=== PATIENT | female | born 1960 | race Hispanic/Latino ===

== ENCOUNTER 2020-03-22 05:44 | Observation (INO) | payer OTHER ==
[~2020-03-22] VITALS: Ht 154.9 cm; Wt 77.1 kg
[2020-03-22] MEDS ORDERED: ASPIRIN 81 MG CHEW TAB PO ONE (06:15)
[2020-03-22] MEDS ORDERED: CLONIDINE HCL 0.2 MG TAB PO ONE (06:15)
[2020-03-22] MEDS ORDERED: CLONIDINE HCL 0.1 MG TAB PO ONE (06:15)
[2020-03-22 06:16] LABS: INR 0.97; PROTHROMBIN TIME 13.4 seconds (11.9-14.5)
[2020-03-22] MEDS ORDERED: CLONIDINE HCL 0.2 MG TAB ONE (06:16)
[2020-03-22 06:19] LABS: CLARITY,URINE CLEAR (CLEAR); COLOR,URINE YELLOW (YELLOW); LEUKOCYTE ESTERASE ,URINE NEGATIVE (NEGATIVE); NITRITE,URINE NEGATIVE (NEGATIVE); PROTEIN,URINE DIPSTICK NEGATIVE (NEGATIVE)
[2020-03-22] MEDS ORDERED: CLONIDINE HCL 0.1 MG TAB ONE (06:19)
[2020-03-22 06:20] LABS: AMPHETAMINES SCREEN,URINE NEGATIVE (NEGATIVE); BENZODIAZEPINES SCREEN,URINE NEGATIVE (NEGATIVE); BILIRUBIN,URINE NEGATIVE (NEGATIVE); KETONES,URINE NEGATIVE (NEGATIVE); PHENCYCLIDINE SCREEN,URINE NEGATIVE (NEGATIVE); URINE UROBILINOGEN 1 mg/dL (0.2 - 1)
[2020-03-22 06:24] LABS: ALANINE AMINOTRANSFERASE 14 IU/L (0-55); ALBUMIN 4.1 g/dL (3.5-5.0); ALBUMIN/GLOBULIN RATIO 1.1 (0.8-2.0); ALKALINE PHOSPHATASE 88 IU/L (40-150); ANION GAP 16.4 mmol/L (8-16); BLOOD UREA NITROGEN 10 mg/dL (7-26); BUN/CREATININE RATIO 14 (6-25); CALCIUM 9.2 mg/dL (8.4-10.2); CARBON DIOXIDE 26 mmol/L (22-29); CHLORIDE 99 mmol/L (98-107); CREATINE KINASE 35 IU/L (29-168); CREATININE, SERUM 0.71 mg/dL (0.57-1.11); EST GLOMERULAR FILTRATION RATE > 60 ML/MIN (60-); GLUCOSE 188 mg/dL (74-118); POTASSIUM 3.4 mmol/L (3.5-5.1); SODIUM 138 mmol/L (136-145)
[2020-03-22 06:30] LABS: BACTERIA,URINE RARE /HPF; EPITHELIAL CELLS,URINE FEW /LPF
[2020-03-22 06:35] LABS: BASOPHILS # (AUTO) 0.1 (0.0-0.1); BASOPHILS % 0.9 % (0.0-1.0); EOSINOPHILS # (AUTO) 0.2 (0.0-0.4); EOSINOPHILS % 3.6 % (0.0-6.0); HEMATOCRIT 39.4 % (34.2-44.1); LYMPHOCYTES # (AUTO) 2.1 (1.0-3.2); LYMPHOCYTES % 38.3 % (18.0-39.1); MEAN CORPUSCULAR HEMOGLOBIN 30.7 pg (28-32); MEAN CORPUSCULAR VOLUME 92.9 fL (81-99); MONOCYTES # (AUTO) 0.4 (0.2-0.8); MONOCYTES % 7.2 % (4.4-11.3); NEUTROPHILS # (AUTO) 2.7 (2.1-6.9); NEUTROPHILS % 49.6 % (38.7-80.0); PLATELET COUNT 188 x10e3/uL (140-360); RED BLOOD COUNT 4.24 x10e6/uL (3.6-5.1); RED CELL DISTRIBUTION WIDTH 14.1 % (11.7-14.4)
[2020-03-22] MEDS ORDERED: AMLODIPINE BES2.5 MG PO (06:49)
[2020-03-22] MEDS ORDERED: METFORMIN HCL500 MG PO (06:49)
--- NOTE | 2020-03-22 06:49 | Diagnostic Imaging Report ---
EXAMINATION: Head CT without contrast. HISTORY:Headache, left-sided numbness. COMPARISON:None. TECHNIQUE: Multidetector axial images were obtained from the foramen magnum to the vertex without contrast. The images were reconstructed using brain and bone algorithms. Thin section brain images were reformatted into coronal and sagittal planes. Dose modulation, iterative reconstruction, and/or weight based adjustment of the mA/kV was utilized to reduce the radiation dose to as low as reasonably achievable. Intravenous contrast: None IMAGE QUALITY: Acceptable. FINDINGS: Skull/scalp: No lytic or blastic. lesions. No surgical changes. Parenchyma: Nonspecific few, scattered supratentorial white matter hypodensity likely related to small vessel ischemic changes. No acute hemorrhage, mass or acute major vascular territorial infarct. Arteries: No density suggestive of thrombosis. Atherosclerotic calcification in bilateral carotid siphon. Dural sinuses: No abnormal density suggestive of thrombosis. Ventricles: No hydrocephalus or displacement. Extra-axial spaces: No abnormal density. Brain volume: Mild generalized cerebral volume loss. Craniocervical junction: No mass, Chiari malformation, or basilar invagination. Sella: No mass. Paranasal/mastoid sinuses: Moderate mucosal thickening in the visualized portion of bilateral maxillary sinuses. IMPRESSION: No acute intracranial abnormality. Mild generalized cerebral volume loss. Mild supratentorial white matter microvascular ischemic changes. Signed by: Dr. Sandra Cobb M.D. on 03/22/2020 6:46 AM
--- NOTE | 2020-03-22 06:53 | NUR ---
Report to JOHN Smith
--- NOTE | 2020-03-22 06:55 | Emergency Department Note ---
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 Onset (how long ago): hour(s) (STARTED LAST NIGHT ~2300) Radiation: Reports non-radiation Severity: moderate Onset quality: gradual Timing of current episode: constant (POSTERIOR HEADACHE/NECK PRESSURE AND LEFT ARM/LEG TINGLING), intermittent (CHEST PRESSURE) Progression: waxing and waning Chronicity: new Context: Denies recent illness Relieving factors: none Exacerbating factors: none Associated symptoms: Reports denies other symptoms, Reports chest pain (NO ASSOC SOB/DIAPHORESIS, NO RADIATION); Denies shortness of breath, Denies weakness Treatments prior to arrival: none Past Medical/Family History Physician Review I have reviewed the patient's past medical and family history. Any updates have been documented here. Past Medical History Recent Fever: No Clinical Suspicion of Infectio: No New/Unexplained Change in Ment: No Past Medical History: Hypertension, Diabetes, Anxiety, Depression, Hyperlipedemia Other Medical History: PANIC ATTACKS Other Surgery: RT KNEE SX Social History Smoking Cessation: Former smoker Counseling Performed: No Alcohol Use: Occasional Any Illegal Drug Use: No TB Exposure/Symptoms: No Physically hurt or threatened: No Family History Family history of heart diseas: No Other Any Pre-Existing Lines (PICC,: No Review of Systems Review of Systems Constitutional: Reports no symptoms EENTM: Reports no symptoms Cardiovascular: Reports as per HPI, Reports chest pain; Denies palpitations Respiratory: Reports no symptoms Gastrointestinal: Reports no symptoms Genitourinary: Reports no symptoms Musculoskeletal: Reports no symptoms Integumentary: Reports no symptoms Neurological: Reports as per HPI, Reports headache, Reports numbness, Reports paresthesia; Denies weakness Psychological: Reports no symptoms Endocrine: Reports no symptoms Hematological/Lymphatic: Reports no symptoms Physical Exam Related Data Allergies: Coded Allergies: codeine (Verified Allergy, Unknown, 03/22/20) Triage Vital Signs Vital Signs Date Time Temp Pulse Resp B/P (MAP) Pulse Ox O2 Delivery O2 Flow Rate FiO2 03/22/20 05:44 98.8 90 20 227/91 100 Room Air Vital signs reviewed: Yes Physical Exam CONSTITUTIONAL Constitutional: Present well-developed, Present well-nourished HENT HENT: Present normocephalic, Present atraumatic, Present oropharynx clear/moist, Present nose normal HENT L/R: Present left ext ear normal, Present right ext ear normal EYES Eyes: Reports PERRL, Reports conjunctivae normal NECK Neck: Present ROM normal; Absent carotid bruit PULMONARY Pulmonary: Present effort normal, Present breath sounds normal CARDIOVASCULAR Cardiovascular: Present regular rhythm, Present heart sounds normal, Present capillary refill normal, Present normal rate GASTROINTESTINAL Abdominal: Present soft, Present nontender, Present bowel sounds normal GENITOURINARY Genitourinary: Present exam deferred SKIN Skin: Present warm, Present dry MUSCULOSKELETAL Musculoskeletal: Present ROM normal NEUROLOGICAL Neurological: Present alert, Present oriented x 3, Present DTRs normal, Present no gross motor or sensory deficits; Absent cranial nerve deficit, Absent sensory deficit, Absent abnormal gait, Absent weakness PSYCHOLOGICAL Psychological: Present mood/affect normal, Present judgement normal Results Laboratory Result Diagram: 03/22/20 0558 03/22/20 0558 Laboratory Laboratory Tests Test 03/22/20 06:00 03/22/20 05:58 Urine Color Yellow (YELLOW) Urine Clarity Clear (CLEAR) Urine pH 7 (5 - 7) Urine Specific [place] 1.025 (1.010-1.025) Urine Protein Negative (NEGATIVE) Urine Glucose (UA) Negative (NEGATIVE) Urine Ketones Negative (NEGATIVE) Urine Blood Negative (NEGATIVE) Urine Nitrite Negative (NEGATIVE) Urine Bilirubin Negative (NEGATIVE) Urine Urobilinogen 1 mg/dL (0.2 - 1) Urine Leukocyte Esterase Negative (NEGATIVE) Urine RBC None /HPF (0-5) Urine WBC 11-20 /HPF (0-5) Urine Epithelial Cells Few /LPF (NONE) Urine Bacteria Rare /HPF (NONE) Urine Opiates Screen Negative (NEGATIVE) Urine Methadone Screen (NEGATIVE) Urine Barbiturates Screen Negative (NEGATIVE) Urine Phencyclidine Screen Negative (NEGATIVE) Urine Amphetamines Screen Negative (NEGATIVE) Urine Methamphetamines Screen Negative (NEGATIVE) Urine Benzodiazepines Screen Negative (NEGATIVE) Urine Cocaine Screen Negative (NEGATIVE) Urine Cannabinoids Screen Negative (NEGATIVE) White Blood Count 5.53 x10e3/uL (4.8-10.8) Red Blood Count 4.24 x10e6/uL (3.6-5.1) Hemoglobin 13.0 g/dL (12.0-16.0) Hematocrit 39.4 % (34.2-44.1) Mean Corpuscular Volume 92.9 fL (81-99) Mean Corpuscular Hemoglobin 30.7 pg (28-32) Mean Corpuscular Hemoglobin Concent 33.0 g/dL (31-35) Red Cell Distribution Width 14.1 % (11.7-14.4) Platelet Count 188 x10e3/uL (140-360) Neutrophils (%) (Auto) 49.6 % (38.7-80.0) Lymphocytes (%) (Auto) 38.3 % (18.0-39.1) Monocytes (%) (Auto) 7.2 % (4.4-11.3) Eosinophils (%) (Auto) 3.6 % (0.0-6.0) Basophils (%) (Auto) 0.9 % (0.0-1.0) Neutrophils # (Auto) 2.7 (2.1-6.9) Lymphocytes # (Auto) 2.1 (1.0-3.2) Monocytes # (Auto) 0.4 (0.2-0.8) Eosinophils # (Auto) 0.2 (0.0-0.4) Basophils # (Auto) 0.1 (0.0-0.1) Absolute Immature Granulocyte (auto 0.02 x10e3/uL (0-0.1) Prothrombin Time 13.4 seconds (11.9-14.5) Prothromb Time International Ratio 0.97 Sodium Level 138 mmol/L (136-145) Potassium Level 3.4 mmol/L (3.5-5.1) Chloride Level 99 mmol/L (98-107) Carbon Dioxide Level 26 mmol/L (22-29) Anion Gap 16.4 mmol/L (8-16) Blood Urea Nitrogen 10 mg/dL (7-26) Creatinine 0.71 mg/dL (0.57-1.11) Estimat Glomerular Filtration Rate > 60 ML/MIN (60-) BUN/Creatinine Ratio 14 (6-25) Glucose Level 188 mg/dL (74-118) Calcium Level 9.2 mg/dL (8.4-10.2) Total Bilirubin 0.6 mg/dL (0.2-1.2) Aspartate Amino Transf (AST/SGOT) 17 IU/L (5-34) Alanine Aminotransferase (ALT/SGPT) 14 IU/L (0-55) Alkaline Phosphatase 88 IU/L (40-150) Creatine Kinase 35 IU/L (29-168) Creatine Kinase MB 0.80 ng/mL (0-5.0) Troponin I < 0.001 ng/mL (0-0.300) Total Protein 7.8 g/dL (6.5-8.1) Albumin 4.1 g/dL (3.5-5.0) Globulin 3.7 g/dL (2.3-3.5) Albumin/Globulin Ratio 1.1 (0.8-2.0) Lab results reviewed: Yes Imaging Imaging results reviewed: Yes Procedures 12 Lead ECG Interpretation ECG Interpretation : ECG: ECG 1 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 CONTROL BP Reassessment Reassessment PT STILL HAVING MILD INTERMITTENT CP - NONE CURRENTLY - WILL ADMIT OBS. I SPOKE WITH DR DA SILVA (ON-CALL) - WANTS CARDIO ON-CALL (SPOKE WITH DR BAUMAN) AND NEURO DR KOEHLER WHO I ALSO INFORMED Assessment & Plan Final Impression: (1) Chest pain (2) Paresthesia (3) Hypertensive urgency Depart Disposition: ADMITTED Last Vital Signs Date Time Temp Pulse Resp B/P (MAP) Pulse Ox O2 Delivery O2 Flow Rate FiO2 03/22/20 06:27 83 15 176/68 100 Room Air 10/21/20 05:44 98.8 Home Meds Reported Medications Metformin Hcl (METFORMIN HCL) 500 Mg Tablet, 500 MG PO DAILY, #60 TAB 03/22/20 Amlodipine Besylate (AMLODIPINE BESYLATE) 2.5 Mg Tablet, 2.5 MG PO DAILY 03/22/20 Medications in the ED Aspirin 81 mg PRN ONCE PO ; Start 03/22/20 at 06:15; Stop 03/22/20 at 06:17; Status DC Clonidine HCl 0.2 mg ONCE ONCE PO ; Start 03/22/20 at 06:15; Stop 03/22/20 at 06:13; Status DC Clonidine HCl 0.1 mg ONCE ONCE PO Last administered on 03/22/20at 06:14; Admin Dose 0.1 MG; Start 03/22/20 at 06:15; Stop 03/22/20 at 06:17; Status DC Clonidine HCl 0.1 mg STK-MED ONCE .ROUTE ; Start 03/22/20 at 06:19; Stop 03/22 at 06:12; Status DC Clonidine HCl STK-MED ONCE .ROUTE ; Start 03/22/20 at 06:16; Stop 03/22/20 at 06:13; Status DC PAULA MCALLISTER MD Mar 22, 2020 06:55
--- OUTSIDE RECORDS SUMMARY | 2020-03-22 07:22 | XMS REPORT | Continuity of Care Document ---
Author Author [facility] Organization [facility] Address [address] [place] [address] Phone Unavailable Care Team Providers Care Securities Sales Associate Name Role Phone Mattie MCALLISTER Attphys Unavailable Problems This patient has no known problems. Allergies, Adverse Reactions, Alerts This patient has no known allergies or adverse reactions. Medications This patient has no known medications. Procedures This patient has no known procedures. Encounters Start Date/Time End Date/Time Encounter Type Admission Type [facility] Care Department Encounter ID Source 2019-09-09 00:00:00 2019-09-09 00:00:00 Outpatient [facility] [id number] [facility] 2019-07-29 00:00:00 2019-07-29 00:00:00 Outpatient [facility] [id number] [facility] 2019-07-15 00:00:00 2019-07-15 00:00:00 Outpatient [facility] [id number] [facility] 2019-06-14 00:00:00 2019-06-14 00:00:00 Outpatient [facility] [id number] [facility] 2019-06-09 13:09:55 2019-06-09 13:09:55 Outpatient [facility] [id number] [facility] 2019-06-09 13:09:33 2019-06-09 13:09:33 Outpatient [facility] [id number] [facility] 2019-06-09 12:54:09 2019-06-09 12:54:09 Outpatient [facility] [id number] [facility] 2019-06-09 11:31:48 2019-06-09 11:31:48 Outpatient [facility] [id number] [facility] 2019-06-09 00:00:00 2019-06-09 00:00:00 Outpatient [facility] [id number] [facility] 2019-05-31 00:00:00 2019-05-31 00:00:00 Outpatient [facility] [id number] [facility] 2019-05-18 11:12:03 2019-05-18 11:12:03 Outpatient [facility] [id number] [facility] 2019-05-18 09:41:40 2019-05-18 09:41:40 Outpatient [facility] [id number] [facility] 2019-05-11 00:00:00 2019-05-11 00:00:00 Outpatient [facility] [id number] [facility] 2019-04-19 00:00:00 2019-04-19 00:00:00 Outpatient [facility] [id number] [facility] 2019-04-08 19:33:00 2019-04-08 19:33:00 Emergency [facility] [id number] [facility] 2019-04-06 00:00:00 2019-04-06 00:00:00 Outpatient [facility] [id number] [facility] 2019-03-10 08:45:46 2019-03-10 08:45:46 Outpatient [facility] [id number] [facility] 2019-03-10 08:45:42 2019-03-10 08:45:42 Outpatient [facility] [id number] [facility] 2019-02-16 00:00:00 2019-02-16 00:00:00 Outpatient [facility] [id number] [facility] 2019-02-16 00:00:00 2019-02-16 00:00:00 Outpatient [facility] [id number] [facility] 2019-02-10 00:00:00 2019-02-10 00:00:00 Outpatient [facility] [id number] [facility] 2019-02-10 00:00:00 2019-02-10 00:00:00 Outpatient [facility] [id number] [facility] 2019-01-29 00:00:00 2019-01-29 00:00:00 Outpatient [facility] [id number] [facility] 2019-01-08 10:47:22 2019-01-08 10:47:22 Outpatient [facility] [id number] [facility] 2019-01-08 10:47:17 2019-01-08 10:47:17 Outpatient [facility] [id number] [facility] 2019-01-01 11:41:09 2019-01-01 11:41:09 Outpatient [facility] [id number] [facility] 2019-01-01 09:40:47 2019-01-01 09:40:47 Outpatient [facility] [id number] [facility] 2019-01-01 00:00:00 2019-01-01 00:00:00 Outpatient [facility] [id number] [facility] 2019-01-01 00:00:00 2019-01-01 00:00:00 Outpatient [facility] [id number] [facility] 2018-11-03 09:27:42 2018-11-03 09:27:42 Outpatient [facility] [id number] [facility] 2018-11-03 08:55:07 2018-11-03 08:55:07 Outpatient [facility] [id number] [facility] 2018-09-17 00:00:00 2018-09-17 00:00:00 Outpatient [facility] [id number] [facility] 2018-09-16 00:00:00 2018-09-16 00:00:00 Outpatient [facility] [id number] [facility] 2018-08-19 00:00:00 2018-08-19 00:00:00 Outpatient [facility] [id number] [facility] 2018-08-17 00:00:00 2018-08-17 00:00:00 Outpatient [facility] [id number] [facility] 2018-08-12 00:00:00 2018-08-12 00:00:00 Outpatient [facility] [id number] [facility] 2018-07-30 00:00:00 2018-07-30 00:00:00 Outpatient [facility] [id number] [facility] 2018-07-21 00:00:00 2018-07-21 00:00:00 Outpatient [facility] [id number] [facility] 2018-07-16 00:00:00 2018-07-16 00:00:00 Outpatient [facility] [id number] [facility] 2018-07-02 09:53:55 2018-07-02 09:53:55 Outpatient [facility] [id number] [facility] 2018-06-25 13:08:21 2018-06-25 13:08:21 Outpatient [facility] [id number] [facility] 2018-06-25 09:34:02 2018-06-25 09:34:02 Outpatient [facility] [id number] [facility] Results Test Description Test Time Test Comments Results Result Comments Source CT BRAIN WO 2020-03-22 06:41:00 [facility] : 1960 Sex: F [facility] [address] [address] Patient Name: TONEY DEL RIO MR #: [id number] : 1960 Age/Sex: 60/F Req #: [id number] Adm Physician: Ordered by: PAULA MCALLISTER MD Report #: [id number] Location: Room/Bed: Procedure: [id number] CT/CT BRAIN WO Exam Date: 03/22/20 Exam Time: 0610 REPORT STATUS: Signed EXAMINATION: Head CT without contrast. HISTORY:Headache, left-sided numbness. COMPARISON:None. TECHNIQUE: Multidetector axial images were obtained from the foramen magnum to the vertex without contrast. The images were reconstructed using brain and bone algorithms. Thin section brain images were reformatted into coronal and sagittal planes. Dose modulation, iterative reconstruction, and/or weight based adjustment of the mA/kV was utilized to reduce the radiation dose to as low as reasonably achievable. Intravenous contrast: None IMAGE QUALITY: Acceptable. FINDINGS: Skull/scalp: No lytic or blastic. lesions. No surgical changes. Parenchyma: Nonspecific few, scattered supratentorial white matter hypodensity likely related to small vessel ischemic changes. No acute hemorrhage, mass or acute major vascular territorial infarct. Arteries: No density suggestive of thrombosis. Atherosclerotic calcification in bilateral carotid siphon. Dural sinuses: No abnormal density suggestive of thrombosis. Ventricles: No hydrocephalus or displacement. Extra-axial spaces: No abnormal density. Brain volume: Mild generalized cerebral volume loss. Craniocervical junction: No mass, Chiari malformation, or basilar invagination. Sella: No mass. Paranasal/mastoid sinuses: Moderate mucosal thickening in the visualized portion of bilateral maxillary sinuses. IMPRESSION: No acute intracranial abnormality. Mild generalized cerebral volume loss. Mild supratentorial white matter microvascular ischemic changes. Signed by: Dr. Sandra Cobb M.D. on 03/22/2020 6:46 AM Dictated By: SANDRA COBB MD 5 Transcribed By: IRINA on 03/22/20645 COPY TO: PAULA MCALLISTER MD Creatine Kinase 2018-11-06 05:47:37 Test Item CK (test code = CK) 43 U/L 26-192 Creatine Kinase MB [id number] 05:47:37* Test Item Value Reference Range Interpretation Comments CKMB (test code = CKMB) 1.8 ng/mL 0.0-2.8 CKMB % (test code = CKMB %) 4.2 % 0.0-3.4 H Troponin [id number] 05:46:46* Test Item Value Reference Range Interpretation Comments Troponin-T (test code = Troponin-T) 8.000 ng/L 0.000-14.000 The CV of the assay at 99th percentile for both male and female patient population is < 10%. A rise and fall in DEXTER with at least one value above the 99th percentile with clinical evidence of myocardial ischemia would support a diagnosis of AMI. A delta of at least 20% is recommended to access acute changes in results above the 99th percentile in serial measurements. Stable DEXTER levels (<20%) delta above the 99th percentile URL would support a diagnosis of chronic myocardial injury. Comprehensive Metabolic [id number] 05:22:27* Test Item Value Reference Range Interpretation Comments Sodium Level (test code = Sodium Level) 139.0 mmol/L 135.0-145.0 Potassium Level (test code = Potassium Level) 4.0 mmol/L 3.5-5.1 Chloride Level (test code = Chloride Level) 99 mmol/L 98-105 CO2 (test code = CO2) 27 mmol/L 22-29 Anion Gap (test code = Anion Gap) 13 mmol/L 7-16 BUN (test code = BUN) 10.90 mg/dL 6.00-20.00 Creatinine Level (test code = Creatinine Level) 0.60 mg/dL 0.50-0 .90 BUN/Creat Ratio (test code = BUN/Creat Ratio) 18 N Glucose Level (test code = Glucose Level) 214 mg/dL 70-115 H Calcium Level (test code = Calcium Level) 10.0 mg/dL 8.3-10.5 Alk Phos (test code = Alk Phos) 85 U/L 35-104 Bilirubin Total (test code = Bilirubin Total) 0.6 mg/dL 0.1-0.9 Albumin Level (test code = Albumin Level) 4.8 g/dL 3.5-5.2 Protein Total (test code = Protein Total) 7.7 g/dL 6.4-8.3 ALT (test code = ALT) 13 U/L 1-33 AST (test code = AST) 14 U/L 1-32 Globulin (test code = Globulin) 2.9 g/dL 2.9-3.1 A/G Ratio (test code = A/G Ratio) 1.7 ratio N Comprehensive Metabolic [id number] 05:22:27* Test Item Value Reference Range Interpretation Comments Sodium Level (test code = Sodium Level) 139.0 mmol/L 135.0-145.0 Potassium Level (test code = Potassium Level) 4.0 mmol/L 3.5-5.1 Chloride Level (test code = Chloride Level) 99 mmol/L 98-105 CO2 (test code = CO2) 27 mmol/L 22-29 Anion Gap (test code = Anion Gap) 13 mmol/L 7-16 BUN (test code = BUN) 10.90 mg/dL 6.00-20.00 Creatinine Level (test code = Creatinine Level) 0.60 mg/dL 0.50-0 .90 BUN/Creat Ratio (test code = BUN/Creat Ratio) 18 N Glucose Level (test code = Glucose Level) 214 mg/dL 70-115 H Calcium Level (test code = Calcium Level) 10.0 mg/dL 8.3-10.5 Alk Phos (test code = Alk Phos) 85 U/L 35-104 Bilirubin Total (test code = Bilirubin Total) 0.6 mg/dL 0.1-0.9 Albumin Level (test code = Albumin Level) 4.8 g/dL 3.5-5.2 Protein Total (test code = Protein Total) 7.7 g/dL 6.4-8.3 ALT (test code = ALT) 13 U/L 1-33 AST (test code = AST) 14 U/L 1-32 Globulin (test code = Globulin) 2.9 g/dL 2.9-3.1 A/G Ratio (test code = A/G Ratio) 1.7 ratio N eGFR AA (test code = eGFR AA) >60 mL/min/1.73 m2 N eGFR (estimated Glomerular Filtration Rate) is an estimated value, calculated from the patient's serum creatinine using the MDRD equation. It is NOT the patient's actual GFR. The eGFR provides a more clinically useful measure of kidney disease than serum creatinine alone.This calculation takes sex and race into account, if the information is provided. If the race is not provided, and the patient is -[place], multiply by 1.212. If sex is not provided, and the patient is female, multiply by 0.742. Results for patients <18 years of age have not been validated by the MDRD study and should be interpreted with caution. eGFR Result Interpretation:eGFR > or = 60 is in the Normal RangeeGFR < 60 may mean kidney diseaseeGFR < 15 may mean kidney failure Ranges recommended by the National Kidney Foundation, http://nkdep.nih.gov Comprehensive Metabolic [id number] 05:22:27* Test Item Value Reference Range Interpretation Comments Sodium Level (test code = Sodium Level) 139.0 mmol/L 135.0-145.0 Potassium Level (test code = Potassium Level) 4.0 mmol/L 3.5-5.1 Chloride Level (test code = Chloride Level) 99 mmol/L 98-105 CO2 (test code = CO2) 27 mmol/L 22-29 Anion Gap (test code = Anion Gap) 13 mmol/L 7-16 BUN (test code = BUN) 10.90 mg/dL 6.00-20.00 Creatinine Level (test code = Creatinine Level) 0.60 mg/dL 0.50-0 .90 BUN/Creat Ratio (test code = BUN/Creat Ratio) 18 N Glucose Level (test code = Glucose Level) 214 mg/dL 70-115 H Calcium Level (test code = Calcium Level) 10.0 mg/dL 8.3-10.5 Alk Phos (test code = Alk Phos) 85 U/L 35-104 Bilirubin Total (test code = Bilirubin Total) 0.6 mg/dL 0.1-0.9 Albumin Level (test code = Albumin Level) 4.8 g/dL 3.5-5.2 Protein Total (test code = Protein Total) 7.7 g/dL 6.4-8.3 ALT (test code = ALT) 13 U/L 1-33 AST (test code = AST) 14 U/L 1-32 Globulin (test code = Globulin) 2.9 g/dL 2.9-3.1 A/G Ratio (test code = A/G Ratio) 1.7 ratio N eGFR AA (test code = eGFR AA) >60 mL/min/1.73 m2 N eGFR (estimated Glomerular Filtration Rate) is an estimated value, calculated from the patient's serum creatinine using the MDRD equation. It is NOT the patient's actual GFR. The eGFR provides a more clinically useful measure of kidney disease than serum creatinine alone.This calculation takes sex and race into account, if the information is provided. If the race is not provided, and the patient is -[place], multiply by 1.212. If sex is not provided, and the patient is female, multiply by 0.742. Results for patients <18 years of age have not been validated by the MDRD study and should be interpreted with caution. eGFR Result Interpretation:eGFR > or = 60 is in the Normal RangeeGFR < 60 may mean kidney diseaseeGFR < 15 may mean kidney failure Ranges recommended by the National Kidney Foundation, http://nkdep.nih.gov eGFR Non-AA (test code = eGFR Non-AA) >60.00 mL/min/1.73 m2 N eGFR (estimated Glomerular Filtration Rate) is an estimated value, calculated from the patient's serum creatinine using the MDRD equation. It is NOT the patient's actual GFR. The eGFR provides a more clinically useful measure of kidney disease than serum creatinine alone.This calculation takes sex and race into account, if the information is provided. If the race is not provided, and the patient is -[place], multiply by 1.212. If sex is not provided, and the patient is female, multiply by 0.742. Results for patients <18 years of age have not been validated by the MDRD study and should be interpreted with caution. eGFR Result Interpretation:eGFR > or = 60 is in the Normal RangeeGFR < 60 may mean kidney diseaseeGFR < 15 may mean kidney failure Ranges recommended by the National Kidney Foundation, http://nkdep.nih.gov XR Chest 1 View [id number] 05:08:27Patient: TONEY DEL RIO Date/Time11/06/2018 05:03 CDTReason for ExamChest painReportExam: Chest portable erectLocation: H 12History: Chest painComparison: NoneFindings:No change has occurred in the aeration of the lungs. The heart size is unchanged. The mediastinal silhouette is unremarkable.Impression:Stable chest. Final Dictated by: MD May Francesco MDictated DT/TM: 11/06/2018 5:08 amSigned by: MD May Francesco MSigned (Electronic Signature): 11/06/2018 5:08 amComplete Blood Count with [id number] 05:01:04* Test Item Value Reference Range Interpretation Comments WBC (test code = WBC) 6.5 x10 4.4-10.5 RBC (test code = RBC) 4.38 x10 3.75-5.20 Hgb (test code = Hgb) 13.9 g/dL 12.2-14.8 MCV (test code = MCV) 91.60 fL 80.00-100.00 Hct (test code = Hct) 40.1 % 36.5-44.4 MCHC (test code = MCHC) 34.70 g/dL 32.00-37.50 RDW CV (test code = RDW CV) 12.6 % 11.5-14.5 MCH (test code = MCH) 31.7 pg 27.0-32.5 Platelets (test code = Platelets) 176.0 x10 140.0-440.0 MPV (test code = MPV) 12.1 fL N Slide Review (test code = Slide Review) Auto Auto Result created by [id number] nRBC (test code = nRBC) 0 N NRBC Abs (test code = NRBC Abs) 0.00 x10 N IPF (test code = IPF) 0 % N Automated [id number] 05:01:04* Test Item Value Reference Range Interpretation Comments Neutro Auto (test code = Neutro Auto) 55.8 % 36.0-70.0 Lymph Auto (test code = Lymph Auto) 31.4 % 12.0-44.0 [place] Auto (test code = [place] Auto) 7.2 % 0.0-11.0 Eos, Auto (test code = Eos, Auto) 4.0 % 0.0-7.0 Basophil Auto (test code = Basophil Auto) 1.1 % 0.0-2.0 Neutro Absolute (test code = Neutro Absolute) 3.6 x10 1.6-7.4 Lymph Absolute (test code = Lymph Absolute) 2.04 x10 .50-4.60 [place] Absolute (test code = [place] Absolute) .47 x10 .00-1.20 Eos Absolute (test code = Eos Absolute) 0.26 x10 0.00-0.74 Baso Absolute (test code = Baso Absolute) 0.07 x10 0.00-0.21 IG [id number] 05:01:04* Test Item Value Reference Range Interpretation Comments IG (test code = IG) 0.5 % 0.0-5.0 IG Abs (test code = IG Abs) 0 x10 N POC [id number] 04:21:12* Test Item Value Reference Range Interpretation Comments Glucose POC (test code = Glucose POC) 203 mg/dL 70-115 H If you consider your patient critically ill, the Radha-Accu Check Infrom II meter should not be used for Glucose determination. Draw a venous Glucose and send to the main Lab for analysis.
[2020-03-22] MEDS ORDERED: KETOROLAC TROMETHAMINE 30 MG/ML VIAL IV STA (08:10)
[2020-03-22] MEDS ORDERED: ONDANSETRON HCL INJ 2MG/ML 2ML 2 MG/ML VIAL IV PRN (08:30)
--- OUTSIDE RECORDS SUMMARY | 2020-03-22 08:33 | XMS REPORT | Continuity of Care Document ---
Author Author [facility] t Organization [facility] Address [address] [place] [address] Phone Unavailable Care Team Providers Care Campus Ambassador Name Role Phone Paresh QUEEN, M Elyssa PCP Neal MCALLISTER Attphys Unavailable Paresh QUEEN, Cammie Bergeron Attphys Katheryn DOWELLN, Corazon Champagne Attphys Unavailab holly Matta RN, Melissa Teresa Attphys Unavailabl alonso Varner MD, Cammie Ross Attphys Jany Mitchell DPM Attphys Thierry QUEEN, Kathi Attphys Payers Payer Name Policy Type Policy Number Effective Date Expiration Date faustina [facility] MED[facility] S[facility] [id number] [facility] [id number] [address] xxxxxxxxx 2015 00:0 0:00 [facility] Problems Condition Name Condition Details Condition Category Status Onset Date Resolution Date Last Treatment Date Treating Clinician Comments Source Dietary counseling and surveillance Dietary counseling and surve illance Disease Active 2015-11-23 00:00:00 [employer] Hyperlipidemia Hyperlipidemia Disease Active 2013-06-23 00:00:00 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 MDD (major depressive disorder), recurrent episode MDD (major depressive disorder), recurrent episode Disease Active 2012-08-31 00:00:00 [facility] Hypertension Hypertension Disease Active 2010-07-18 00:00:00 [facility] Diabetes mellitus type II Diabetes mellitus type II Disease Ac tive 2010-07-18 00:00:00 [facility] Allergies, Adverse Reactions, Alerts Allergy Name Allergy Type Status Severity Reaction(s) Onset Date Inacti ve Date Treating Clinician Comments Source Codeine Propensity to adverse reactions to drug Active 2015-08-31 00:00:00 [facility] Family History Family Member Diagnosis Comments Start Date Stop Date Source Maternal aunt Diabetes [facility] Natural [facility] Natural sister [facility] Social History Social Habit Start Date Stop Date Quantity Comments Source Sex Assigned [facility] Alcohol intake 2019-11-15 00:00:00 2019-11-15 00:00:00 Current non-drinker of alcohol (finding) [facility] SDOH Food Worry 2017-11-12 00:00:00 2017-11-12 00:00:00 1 [facility] SDOH Food Scarcity 2017-11-12 00:00:00 2017-11-12 00:00:[address] [facility] Tobacco Comment 2017-11-12 00:00:00 2017-11-12 00:00:[address] [facility] Smoking Status Start Date Stop Date Source Former smoker 2019-11-15 00:00:00 2019-11-15 00:00:00 [facility] ealt Medications Ordered Medication Name Filled Medication Name Start Date Stop Da te Current Medication? Ordering Clinician Indication Dosage Frequency Signature (SIG) Comments Components Source ergocalciferol (VITAMIN D2) 1,250 mcg (50,000 unit) capsule 2020-03-09 00:00:00 Yes Vitamin D deficiency 49544G Take 1 capsule by mouth ONCE A WEEK. [facility] ergocalciferol (VITAMIN D2) 1,250 mcg (50,000 unit) capsule 2019-12-08 00:00:00 2020-03-09 00:00:00 No Vitamin D deficiency 53450P Take 1 capsule by mouth ONCE A WEEK. [facility] ergocalciferol (VITAMIN D2) 1,250 mcg (50,000 unit) capsule 2019-11-20 00:00:00 2019-12-08 00:00:00 No Vitamin D deficiency 66536R Take 1 capsule by mouth ONCE A WEEK. [facility] amLODIPine (NORVASC) 2.5 mg tablet 2019-11-15 00:00:00 Yes Essential hypertension 2.5mg QD Take 1 tablet by mouth daily. [facility] atorvastatin (LIPITOR) 10 mg tablet 2019-10-04 00:00:00 Yes Hyperlipidemia, unspecified hyperlipidemia type 10mg Take 1 tablet by mouth every evening. [facility] albuterol 90 mcg/actuation inhaler 2019-09-21 00:00:00 Yes Reactive airway disease without complication, unspecified asthma severity, unspecified whether persistent 2{puff} Inhale 2 Puffs by tx ut every 6 hours as needed for Wheezing (cough) Albuterol inhaler covered by patient's insurance carrier. [facility] ergocalciferol (VITAMIN D2) 1,250 mcg (50,000 unit) capsule 2019-09-21 00:00:00 2019-11-20 00:00:00 No Vitamin D deficiency 91385W Take 1 capsule by mouth ONCE A WEEK. [facility] alendronate (FOSAMAX) 70 mg tablet 2019-09-03 00:00:00 Yes Osteopenia, unspecified location Take 1 tablet once a week on empty stomach with 8 oz of water and remain upright for [address] [facility] ergocalciferol (VITAMIN D2) 1,250 mcg (50,000 unit) capsule 2019-09-03 00:00:00 2019-09-21 00:00:00 No Vitamin D deficiency 87186Q Take 1 capsule by mouth weekly. [facility] metFORMIN (GLUCOPHAGE) 500 mg tablet 2019-06-22 00:00:00 Yes Non-insulin dependent type 2 diabetes mellitus 500mg Take 1 tablet by mouth 2 times daily (with meals). [facility] ergocalciferol (VITAMIN D2) 1,250 mcg (50,000 unit) capsule 2019-06-12 00:00:00 2019-09-03 00:00:00 No Vitamin D deficiency 49723I Take 1 capsule by mouth weekly. [facility] albuterol 90 mcg/actuation inhaler 2019-06-09 00:00:00 202 00:00:00 No Reactive airway disease without complica tion, unspecified asthma severity, unspecified whether persistent 2{puff} Inhale 2 Puffs by mouth every 6 hours as needed for Wheezing (cough). [facility] danielelth lisinopril (PRINIVIL) 20 mg tablet 2019-05-18 00:00:00 00:00:00 No Essential hypertension 20mg QD Take 1 tablet by mouth artur palma [facility] tropicamide (MYDRIACYL) 0.5 % ophthalmic solution 2019-05-18 00:00:00 2019-09-21 00:00:00 No Non-insulin dependent type 2 diabe benton mellitus 1[drp] Instill 1 Drop in each eye once as neede d for up to 1 dose (for poor retina scan image). [facility] amoxicillin (AMOXIL) 500 mg capsule 2019-05-18 00:00:0 0 2019-05-28 23:59:00 No Sinusitis, unspecified chronicity, unspecified locatio n 500mg Take 1 capsule by mouth 3 times daily for [address] [facility] alendronate (FOSAMAX) 70 mg tablet 2019-01-19 00:00:00 00:00:00 No Osteopenia, unspecified location Take 1 tablet once a week on empty stomach with 8 oz of water and remain upright for [address] [facility] ergocalciferol (VITAMIN D2) 50,000 unit capsule 2019-01-07 00:00:00 2019-06-12 00:00:00 No Vitamin D deficiency 87440W Take 1 capsule by mouth weekly. [facility] atorvastatin (LIPITOR) 10 mg tablet 2019-01-01 00:00:0 0 2019-10-04 00:00:00 No Hyperlipidemia, unspecified hyperlipidemia type 10mg Take 1 tablet by mouth every evening. [facility] tropicamide (MYDRIACYL) 0.5 % ophthalmic solution 2019-01-01 00:00:00 2019-05-18 00:00:00 No Non-insulin dependent type 2 diabe benton mellitus 1[drp] Instill 1 Drop in each eye once as neede d for up to 1 dose (for poor retina scan image). [facility] blood glucose test strips 2018-11-27 00:00:00 Yes Non-insulin dependent type 2 diabetes mellitus Use two times a week as directed to test blood sugar with truemetrix glucometer. [facility] lancets 2018-11-27 00:00:00 Yes Non-insulin dependent type 2 diabetes mellitus use two times a week as directed for blood glucose testing with truemetrix glucometer. [facility] metFORMIN (GLUCOPHAGE) 500 mg tablet 2018-06-25 00:00: 00 2019-06-22 00:00:00 No Non-insulin dependent type 2 diabetes mellitus 500mg Take 1 tablet by mouth 2 times daily (with meals). [facility] lisinopril (PRINIVIL) 10 mg tablet 2018-06-25 00:00:00 201 02-11-17 00:00:00 No Essential hypertension 10mg QD Take 1 tablet by mouth artur palma [facility] blood glucose meter 2017-11-12 00:00:00 Yes Type 2 diabetes mellitus with microalbuminuria, without long-term current use of insulin Use as directed.. [facility] ASPIRIN 81 mg Tab 2010-07-04 00:00:00 Yes HTN (hy pertension) Take by mouth. [facility] Immunizations Ordered Immunization Name Filled Immunization Name Date Status Comments Source Tdap Tetanus, diphtheria, acellular pertussis Vaccine 2012-01-21 00:00:[address] [facility] PPV 23 Pneumococcal Polysaccaride 2012-01-21 00:00:[address] [facility] Vital Signs Vital Name Observation Time Observation Value Comments Source Systolic blood pressure 2019-12-07 09:49:00 155 mm[Hg] [facility] Diastolic blood pressure 2019-12-07 09:49:00 72 mm[Hg] [facility] Heart rate 2019-12-07 09:49:00 81 /min [facility] Body temperature 2019-07-15 09:23:00 36.78 Susie [facility] Respiratory rate 2019-07-15 09:23:00 20 /min [facility] Body height 2019-07-15 09:23:00 155.6 cm [facility] Body weight 2019-07-15 09:23:00 77.701 kg [facility] BMI 2019-07-15 09:23:00 32.09 kg/m2 [facility] Procedures Procedure Date / Time Performed Performing Clinician Sourc e XRAY CHEST 2 VIEWS 2019-12-07 10:29:56 Elyssa Yoder [facility] BASIC METABOLIC PANEL 2019-12-07 08:32:[address] [facility] HEMOGLOBIN A1C 2019-12-07 08:32:00 Elyssa Yoder [facility] LIPID PROFILE 2019-12-07 08:32:[facility]-12-07 08:32[facility]AB COMBO ROUTINE SCREENING 2019-12-07 08:32:00 Ki Yoder [facility] VIT D, 25-HYDROXY 2019-12-07 08:32[facility]00 [facility] CREATININE URINE RATIO 2019-12-07 08:32:00 Paresh [facility] MAMMO BREAST ULTRASOUND UNILATERAL, LTD 2019-10-29 09:30:44 Adrian l [facility] FECAL OCCULT BLOOD 2019-07-13 14:51:00 [facility] 2 VIEWS MIN 2019-06-09 13:23:25 Elyssa Yoder [facility] XRAY CHEST 2 VIEWS 2019-06-09 13:23:08 [facility] HEMO[facility]IN A1C 2019-06-09 12:54:00 Elyssa Yoder [facility] BASIC METABOLIC PANEL 2019-06-09 12:54:00 [facility] CBC (WITHOUT DIFFERENTIAL) 2019-06-09 12:54:[address] [facility] THYROID STIMULATING HORMONE (TSH) 2019-06-09 12:54:00 YoderKi saul [facility] LIPID PROFILE 2019-06-09 12:54:00 [facility]IVER [facility] 2019-06-09 12:54:00 Elyssa Yoder [facility] VIT D, 25-HYDROXY 2019-06-09 12:54:00 [facility] HIGH-RISK 2019-06-09 12:21:00 [facility] CYTOLOGY 2019-06-09 12:21:00 [facility]AM 2019-06-09 12:11:43 [facility]PH[facility] RETINAL SCAN 2019-05-18 12:56:08 [facility] DIABETIC FO[facility]AM 2019-05-18 10:03:32 Elyssa Yoder Plan of Care Planned Activity Planned Date Details Comments Source Scheduled Test 2022-06-09 00:00:00 Screening for leonard gnant neoplasm of cervix (procedure) [code = 382043123] [facility] Scheduled Test 2020-12-06 00:00:00 Hemoglobin A1c javier surement (procedure) [code = 64154935] [facility] Scheduled Test 2020-12-06 00:00:00 Urine screening fo r protein (procedure) [code = 258876278] [facility] Scheduled Test 2020-07-13 00:00:00 Screening for leonard gnant neoplasm of colon (procedure) [code = 502105743] [facility] Scheduled Test 2020-06-09 00:00:00 DM Foot Exam (Year ly) [code = DM Foot Exam (Yearly)] [facility] Scheduled Test 2020-05-18 00:00:00 DM Retinal Exam (Y early) [code = DM Retinal Exam (Yearly)] [facility] Scheduled Test 2020-03-02 00:00:00 IMM Influenza Seas onal Mar to July (>/= 19 yrs) [code = IMM Influenza Seasonal Mar to July (>/= 19 yrs)] [facility] Scheduled Test 2020-01-09 00:00:00 Breast Cancer Scrn (Yearly) [code = Breast Cancer Scrn (Yearly)] [facility] Encounters Start Date/Time End Date/Time Encounter Type Admission Type [facility] Care Department Encounter ID Source 2019-09-09 00:00:00 2019-09-09 00:00:00 Outpatient [facility] [id number] [facility] 2019-07-29 00:00:00 2019-07-29 00:00:[address] [facility] [id number] [facility] 2019-07-15 00:00:00 2019-07-15 00:00:00 Outpatient [facility] [id number] [facility] 2019-06-14 00:00:00 2019-06-14 00:00:00 Out[address] [facility] [id number] [facility] 2019-06-09 13:09:55 2019-06-09 13:09:55 Outpatient [facility] [id number] [facility] 2019-06-09 13:09:33 2019-06-09 13:09:33 Outpatient [facility] [id number] [facility] 2019-06-09 12:54:09 2019-06-09 12:54:09 Outpatient [facility] [id number] [facility] 2019-06-09 11:31:48 2019-06-09 11:31:48 [address] [facility] [id number] [facility] 2019-06-09 00:00:00 2019-06-09 00:00:00 Outpatient [facility] [id number] [facility] 2019-05-31 00:00:00 2019-05-31 00:00:00 Outpatient [facility] [id number] [facility] 2019-05-18 11:12:03 2019-05-18 11:12:03 Out[address] [facility] [id number] [facility] 2019-05-18 09:41:40 2019-05-18 09:41:40 Outpatient [facility] [id number] [facility] 2019-05-11 00:00:00 2019-05-11 00:00:00 Outpatient [facility] [id number] [facility] 2019-04-19 00:00:00 2019-04-19 00:00:00 [address] [facility] [id number] [facility] 2019-04-08 19:33:00 2019-04-08 19:33:00 Emergency [facility] [id number] [facility] 2019-04-06 00:00:00 2019-04-06 00:00:00 Outpatient [facility] [id number] [facility] 2019-03-10 08:45:46 2019-03-10 08:45:46 [address] [facility] [id number] [facility] 2019-03-10 08:45:42 2019-03-10 08:45:42 Outpatient [facility] [id number] [facility] 2019-02-16 00:00:00 2019-02-16 00:00:00 Outpatient [facility] [id number] [facility] 2019-02-16 00:00:00 2019-02-16 00:00:00 Outpatient [facility] [id number] [facility] 2019-02-10 00:00:00 2019-02-10 00:00:00 Outpatient [facility] [id number] [facility] 2019-02-10 00:00:00 2019-02-10 00:00:00 Out[address] [facility] [id number] [facility] 2019-01-29 00:00:00 2019-01-29 00:00:[address] [facility] [id number] [facility] 2019-01-08 10:47:22 2019-01-08 10:47:22 Outpatient [facility] [id number] [facility] 2019-01-08 10:47:17 2019-01-08 10:47:17 Outpatient [facility] [id number] [facility] 2019-01-01 11:41:09 2019-01-01 11:41:09 Outpatient [facility] [id number] [facility] 2019-01-01 09:40:47 2019-01-01 09:40:47 Outpatient [facility] [id number] [facility] 2019-01-01 00:00:00 2019-01-01 00:00:00 Out[address] [facility] [id number] [facility] 2019-01-01 00:00:00 2019-01-01 00:00:00 Outpatient [facility] [id number] [facility] 2018-11-03 09:27:42 2018-11-03 09:27:42 Outpatient [facility] [id number] [facility] 2018-11-03 08:55:07 2018-11-03 08:55:07 Outpatient [facility] [id number] [facility] 2018-09-17 00:00:00 2018-09-17 00:00:00 Outpatient [facility] [id number] [facility] 2018-09-16 00:00:00 2018-09-16 00:00:00 Outpatient [facility] [id number] [facility] 2018-08-19 00:00:00 2018-08-19 00:00:00 Outpatient [facility] [id number] [facility] 2018-08-17 00:00:00 2018-08-17 00:00:00 Outpatient [facility] [id number] [facility] 2018-08-12 00:00:00 2018-08-12 00:00:00 Outpatient [facility] [id number] [facility] 2018-07-30 00:00:00 2018-07-30 00:00:00 Outpatient [facility] [id number] [facility] 2018-07-21 00:00:00 2018-07-21 00:00:00 [address] [facility] [id number] [facility] 2018-07-16 00:00:00 2018-07-16 00:00:00 Outpatient [facility] [id number] [facility] 2018-07-02 09:53:55 2018-07-02 09:53:55 Outpatient [facility] [id number] [facility] 2018-06-25 13:08:21 2018-06-25 13:08:21 Outpatient [facility] [id number] [facility] 2018-06-25 09:34:02 2018-06-25 09:34:02 Outpatient [facility] [id number] [facility] Results Test Description Test Time Test Comments Results Result Comments Source CT BRAIN WO 2020-03-22 06:41:00 [facility] : 1960 Sex: F [place] [phone] Patient Name: TONEY DO MR #: [id number] : 1960 Age/Sex: 60/F Req #: [id number] [facility] Physician: Ordered by: PAULA MCALLISTER MD Report #: [id number] Location: Room/Bed: Procedure: [id number] CT/CT BRAIN WO Exam Date: 03/22/20 Exam [...] on 03/22/20645 COPY TO: PAULA MCALLISTER MD XRAY CHEST 2 VIEWS 2019-12-07 13:51:16 IMPRESSIO N: Mildly increased pulmonary vascular markings, suggestive of mildpulmonary venous congestion. If the report is "FINALIZED" it indicates that the attending/staffradiologist has reviewed the images and agrees with the resident'sinterpretation. Dictated By: María Plasencia MD, 12/07/2019 10:38 AM I have reviewed the study and agree with the findings in this report. Signed By: Hiram Manley MD, 12/07/2019 1:51 PM Interface, Rad/Mammog In - 12/07/2019 1:56 PM CDTEXAMINATION: XRAY CHEST 2 VIEWS INDICATION: 59 year old with cough COMPARISON: Prior chest radiograph dated 06/09/2019 1:13 PM. FINDINGS: PA and lateral viewsTUBES and LINES: NoneLUNGS: Lungs are well inflated. No consolidations or edema. Mildlyincreased pulmonary vascular markings.PLEURA: No effusions. No pneumothorax. HEART AND MEDIASTINUM: Normal for technique. BONES AND SOFT TISSUES: The bones are unremarkable. Soft tissues areunremarkable.UPPER ABDOMEN: No free air under the diaphragm. IMPRESSIONIMPRESSION: Mildly increased pulmonary vascular markings, suggestive of mildpulmonary venous congestion.If the report is "FINALIZED" it indicates that the attending/staffradiologist has reviewed the images and agrees with the resident'sinterpretation.Dictated By: María Plasencia MD, 12/07/2019 10:38 AMI have reviewed the study and agree with the findings in this report.Signed By: Hiram Manley MD, 12/07/2019 1:51 PM [facility] [place] Fecal Occult Blood 2019-07-13 15:37:00 Test Item Occult Blood (test code = 81601-3) Negative Negative Lab Interpretation (test code = 12600-6) Normal [facility] Test [id number] 12:33:00* Test Item Value Reference Range Interpretation Comments Case Report (test code = 745614072) Gynecologic Cytolo gy Report Case: [id number] Authorizing Provider: Elyssa Yoder MD Collected: 06/09/2019 12:21 PM Ord ering Location: [facility] Received: 06/09/2019 12:34 PM First Screen: Patricia Kirkland, IMANI (ASCP) Specimen: Liquid-Based Preparation, manual, Cervicovaginal Specimen Adequacy (test code = 778501850) Satisfactory for evaluation, No endocervical/transformation zone present General Categorization (test code = 722255236) Negativ e for Intraepithelial Lesion or Malignancy Interpretation (test code = 837246066) Negative for in traepithelial lesion or malignancy Pertinent Clinical Information (test code = 91080074) c8ujfPAjUXJpj1goEEXbnIRlMvUkIyOdWqIlUti0WRZyomW1Quj2SNOsKCgysI3rPLCjDAarV7qrfzYi yBOxDIZrAOy7yP3vkVztzR9zXhLnJgDqBNTjX8CnCE2vgkgvqGKxQCCdwuI6 Educational Note (test code = 999013826) u1knoYQqLZIwhEFsAbFjPRZzRCBwa3zxQXPmpLLtRvSnYkBgTfYmQsyquJVzVMVpQgRjx6hwd446tTUd n3crGDOsTyF6sSBcJFKxvDVdR386SLLcFEace6ldv1JcSWFlxXJvj0N5AVWIkwcseTc5fLerC61ol3Q7 OiyvZ7ooFUAwIJJrE3RoME1uLJEeFrx3SSQ5NHZ6KU ItJFOqA6WnIC2pJTBkbQMxOVj5b5seoDcfXYIiCTR2j7ccQLhqpcVyHI2zti1ojNq3x5vpjiVfEQHwXG NpwRUMCHYzF9AxiKsaAk6djVh2cKpdAjznZOO5Suu5GJ8rha54tyq7bFatHZOgkjirDtV4HDprWFDpej gaLXx4LHhlDRTxcRV2ZKLyyNZpP0ZwZXDcGX9vqvj6 QQM7TAvsOWWbJhZ4CMLxvZVzDIBdeCabOUuyc230FPK6CaGxUZ8fC4Ziq3L5xD8lqYAyVCFphWAkWvXo QNLgjn5uiAAgVRszz1WyCPV7xrO1gQMosYZiOCHcRF32Kfaqd3PxKvzbl8RjO38eiLW9CIsej6jlWD1o SqX7dyDcCOjmw9eugA9qDxW9UKgsTV4nKC7hXYAejO 4lzuewNZOsYwOsnpyrCAXsqXvrzpVrAx9mjNmmPWJ9TMnwB8sdyL1fJuG6DFyhQ8qbwB9yOZv0BXupwL L4TGMhtV1cLS3fizohi4xkLNgyYXdtFYPscdQ6lhB8EHJsbCMdZ9ZmxK4hBUDoHT6kgcphq3kbYBN1QL lsDMYiDJH6RkJzYMHql4Sscsv6DpOgl0HqfIZvZNdu P98ie830ZFArhcImF3rvxJMeexyxeVUxpfdvDLpvpbC9JQTxanFnz8EqGIUlWQV9ZCtxFXlawRXaSPXt nDsbj4evF2IhrRDmWJYtGNsiBVAdEMPmMqNqyXNpAuYmAuVucRylcGheKVrqMgIsYUSjGZdwD3hlQnFu I5YfCIEaTlJtYjZXwZMmdS7aouHPVFKvfZMdCOojhU ZeYEDtMVdhUCZpAJUiCkTqkKGxNdMpNbKshMwofMxoWZkaRqFoRBByCNlmL7ovTeFbQ4VxBGPaQjZeM1 6gPPHclY5eqjMpDFMvZUhhHkSeXRe9AYOazUvdtK9wYjGkWpKmXzbdXH5lEYSvG0bkaWBsIXGjNJEaX6 nkQfIkcA3ulSpxQSeuYdYvWrZjBgrlKOUlgxptAIVs nCdhiL1aHpAwIsKxLfpeTW0aEHYgN6kkiOOqYIMqQETeH9mkVaFmnQ6oeRxnZWqaSrSxTcSfAunrxXSd tHdvCRBwIPKzHGFuz36yXHJeeFQtiXBjeuShIELgdpBceyjrNgJ4MHZ6OBSrwrVwYDW0gACizSWrKB3s BJJlHC2qEQPie0h1xTNtR9FjEN5dxflmePVbC7TmoR NqfvkeMq35qGNlGVbzFZWjBQqyiBj0GSThxtRqOiVio3PmlG9uuWQbedWxupLlmTq8wxCuSLaut2BfoO GcIZ0wZRObW0IdWYAtNNXbUTR9nBZiGJQwn3ZnYYXoKSUutcJeepOsADWdMTTpvpC6rHMiB29sfHP2vR YdElMbPCSpXW43U3YwvJpjzP9qvNRudaTkW9GfldCi aLWebElycXQayQIaezPxas5vgBgxok9tHXRlistdBMAsELYqlDPoVIE6lIXkbsOadGdslSlqrL3iJfPw LbZtJAohhCWthpzbNEqhjuUaTTwvphgvABSvDDjxQ8pxZnOxNCHggWvzAVdpp7QsOQUlRNYkSzCqmUPg fQ== History of Abnormality (test code = 48560690) No Treatment History (test code = 72985230) None/NA Menstrual Status (test code = 87827801) Post-menopausal Current Contraceptive (test code = 23635539) [facility]02[facility]53-08 18:44:00* Test Item Value Reference Range Interpretation Comments HPV High Risk (test code = 30453691) Negative Negative KAI (test code = KAI) The APTIMA HPV Assay is an i n vitro nucleic acid amplification test for the qualitative detection of E6/E7 viral messenger RNA (mRNA) from 14 high-risk types of human papillomavirus (HPV) in cervical sp ecimens. The high-risk HPV types detected by the assay include: 16,18,31,33,35,39,45,51,52,56,58,59,66, and 68. Lab Interpretation (test code = 71369-1) [facility]Thy[facility]ulating [facility]ormone]2019-06-09 16:58:00* Test Item Value Reference Range Interpretation Comments TSH (test code = 11694753) 1.59 0.45- 5.33 uIU/mL If , please see the following reference ranges (not verified by lab): 1st Trimester: 0.05 -3.70 uIU/mL2nd Trimester: 0.31 -4.35 uIU/mL3rd Trimester: 0.41 - 5.18 uIU/mL Lab Interpretation (test code = 16550-7) Normal [facility] (without differential)2019-06-09 16:34:00* Test Item Value Reference Range Interpretation Comments WBC (test code = 6690-2) 7.2 K/uL 4.5-11 RBC (test code = 789-8) 4.28 4.20- 5.40 M/uL Hemoglobin (test code = 718-7) 13.5 g/dL 12-16 Hematocrit (test code = 4544-3) 40.5 % 37-47 MCV (test code = 787-2) 94.6 fL 82-92 H MCH (test code = 785-6) 31.5 pg 27-32 MCHC (test code = 786-4) 33.3 g/dL 32-36 RDW (test code = 31227-6) 45.0 fL 36.4-46.3 Platelet (test code = 777-3) 169 K/uL 150-400 Mean Platelet Volume (test code = 95701-3) 13.1 fL 9.4-12.4 H Percent NRBC (test code = 74709526) 0.0 % Lab Interpretation (test code = 36571-7) Abnormal [facility] SHOULDER 2 VIEWS [id number] 13:36:27IMPRESSION: 1. No acute osseous abnormality.2. Small focus of calcific tendinopathy Dictated By: Chidi Coats MD, 06/09/2019 1:33 PM I have reviewed the study and agree with the findings in this report. Signed By: Petros Casiano MD, 06/09/2019 1:36 PM Interface, Rad/Mammog In - 06/09/2019 1:41 PM CSTEXAM: LEFT SHOULDER 3 VIEWSHISTORY: 59 year old left shoulder painCOMPARISON: Left shoulder radiograph 11/23/2015DISCUSSION:Adequate internal and external rotation.No acute displaced fracture or malalignment.Joint spaces are well maintained without definite oss eous erosion.Punctate ossifications superior to the greater tuberosity.IMPRESSIO NIMPRESSION:1. No acute osseous abnormality.2. Small focus of calcific tendino pathyDictated By: Chidi Coats MD, 06/09/2019 1:33 PMI have reviewed the study and agree with the findings in this report.Signed By: Petros Casiano MD, 06/09/2019 1 :[address] [facility]DIPSYCHIATR[facility] FOOT [id number] 12:11:43Elyssa Yoder MD 06/10/2019 7:01 PMDiabetic Foot Exam was performed at 06/09/2019 12:33 PM. Right foot sensation is normal, right foot pulses are normal, right foot appearance is normal. Left foot sensation is normal, left foot pulses are normal, left foot appearance is normal. [facility]AL [id number] 13:10:42* Test Item Value Reference Range Interpretation Comments RETINAL SCAN-FINAL RESULT (test code = 78268) ALERT A Right Diabetic Retinopathy (test code = 491302) Mild A Right Macular Edema (test code = 19258) None Right Other Suspected Conditions (test code = 80634) None Right Image Quality (test code = 55608) Gradeable Image Left Diabetic Retinopathy (test code = 13333) None Left Macular Edema (test code = 61840) None Left Other Suspected Conditions (test code = 56958) None Left Image Quality (test code = 64018) Gradeable Image KAI (test code = KAI) Retinal Study Result for TONEY WASHINGTON DOTONEY DIAZneal 59 y/o, F (: 1960, )presented to [facility] [place] on 05-18-2019 for a retinal imaging study of the left and right eyes. Based on the findings of the study, the following is recommended for MICHELLE DOINGELatashaki Pathology Found: Please advise the patient to return for another scan in 1 year. Interpreting Provider's Comments: No comments provided Right Eye Findings:Diabetic Retinopathy: Mild Left Eye Findings:Normal Result. Negative for Diabetic Retinopathy. This result was electronically signed by Scott Grewal MD, , Taxonomy: [id number] on 05-18-2019 07:10:42 [facility] time. NOTE: Any pathology noted on this diabetic retinal evaluation should be confirmed by an appropriate ophthalmic examination. Lab Interpretation (test code = 80198-9) Abnormal [facility] Hospital[facility] [id number] 05:47:37* Test Item Value Reference Range Interpretation Comments CK (test code = CK) 43 U/L 26-192 Creatine Kinase MB [id number] 05:47:37* Test Item Value Reference Range Interpretation Comments CKMB (test code = CKMB) 1.8 ng/mL 0.0-2.8 CKMB % (test code = CKMB %) 4.2 % 0.0-3.4 H Troponin [id number] 05:46:46* Test Item Value Reference Range Interpretation [...] diagnosis of chronic myocardial injury. Comprehensive Metabolic [id number] 05:22:27* Test Item Value Reference Range Interpretation [...] A/G Ratio) 1.7 ratio N Comprehensive Metabolic [id number] 05:22:27* Test Item Value Reference Range Interpretation [...] is not provided, and the patient is -Romanian, multiply by 1.212. If sex is not [...] the National Kidney Foundation, http://nkdep.nih.gov Comprehensive Metabolic [id number] 05:22:27* Test Item Value Reference Range Interpretation [...] is not provided, and the patient is -Romanian, multiply by 1.212. If sex is not [...] is not provided, and the patient is -Romanian, multiply by 1.212. If sex is not [...] Kidney Foundation, http://nkdep.nih.gov XR Chest 1 View [id number] 05:08:27Patient: TONEY DO Date/Time11/06/2018 05:03 CDTReason for ExamChest painReportExam: Chest portable erectLocation: H 12History: Chest painComparison: NoneFindings:No change has occurred in the aeration of the lungs. The heart size is unchanged. The mediastinal silhouette is unremarkable.Impression:Stable chest. Final Dictated by: MD Yadira, Zach QUEENictated DT/TM: 11/06/2018 5:08 amSigned by: MD May Francesco MSigned (Electronic Signature): 11/06/2018 5:08 amComplete Blood Count with [id number] 05:01:04* Test Item Value Reference Range Interpretation [...] code = IPF) 0 % N Automated [id number] 05:01:04* Test Item Value Reference Range Interpretation Comments Neutro Auto (test code = Neutro Auto) 55.8 % 36.0-70.0 Lymph Auto (test code = Lymph Auto) 31.4 % 12.0-44.0 Bradford Auto (test code = Bradford Auto) 7.2 % 0.0-11.0 Eos, Auto (test code = Eos, Auto) 4.0 % 0.0-7.0 Basophil Auto (test code = Basophil Auto) 1.1 % 0.0-2.0 Neutro Absolute (test code = Neutro Absolute) 3.6 x10 1.6-7.4 Lymph Absolute (test code = Lymph Absolute) 2.04 x10 .50-4.60 Bradford Absolute (test code = Bradford Absolute) .47 x10 .00-1.20 Eos Absolute (test code = Eos Absolute) 0.26 x10 0.00-0.74 Baso Absolute (test code = Baso Absolute) 0.07 x10 0.00-0.21 IG [id number] 05:01:04* Test Item Value Reference Range Interpretation Comments IG (test code = IG) 0.5 % 0.0-5.0 IG Abs (test code = IG Abs) 0 x10 N POC [id number] 04:21:12* Test Item Value Reference Range Interpretation Comments Glucose POC (test code = Glucose POC) 203 mg/dL 70-115 H If you consider your patient critically ill, the Radha-Accu Check Infrom II meter should not be used for Glucose determination. Draw a venous Glucose and send to the main Lab for analysis.
[2020-03-22] MEDS: ASPIRIN 81 MG ENTERIC COATED PO SCH (08:44)
[2020-03-22] MEDS ORDERED: AMLODIPINE BESYLATE 5 MG TAB PO ONE (09:00)
[2020-03-22] MEDS ORDERED: DEXTROSE 50% SYRINGE 50 ML IV PRN (09:00)
--- NOTE | 2020-03-22 09:15 | Diagnostic Imaging Report ---
TECHNIQUE: Frontal view of the chest. INDICATION: ^numbness L side ^[id number] ^0620 COMPARISON: None IMPRESSION: Lines and hardware: None. Heart and mediastinum: Unremarkable. Lungs and pleura: No focal airspace consolidation. No pleural effusion. No pneumothorax. Soft tissues and bones: No acute abnormality. Signed by: Stew Alston MD on 03/22/2020 9:11 AM
[2020-03-22] MEDS: HEPARIN SOD (PORCINE) 5,000 UNIT/ML VIAL SC SCH ×2 (10:03→21:00)
--- NOTE | 2020-03-22 10:32 | History and Physical ---
The patient of Dr. Elyssa Yoder. HISTORY OF PRESENT ILLNESS: Admitted with numbness and tingling in the left arm and chest pain heaviness, history of hypertension, diabetes, history of intolerance to lisinopril, causing chest pain, history of diabetes since 2004, on metformin. Allergic to codeine. 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 Nonsmoker. No alcohol use. Born in [place]. She has had left knee surgery following a complicated fracture requiring repair. Her weight has been labile. She admits to depression, particularly seasonal, but declines therapy at this time, claiming that she has had adverse reaction to an antidepressant. Denies sore throat. Denies dyspnea. Denies dysuria. Admits to chest pain, paresthesias on the left arm, tingling, chest pain, accompanied to the chest pain. She is diabetic, on metformin. PHYSICAL EXAMINATION: GENERAL: She is a well-developed, moderately obese white female, in no acute distress. VITAL SIGNS: Blood pressure on admission was 227/91, respirations 18, pulse 81, and afebrile. HEAD: Normocephalic and atraumatic. EYES: Extraocular movements intact. LUNGS: Clear. HEART: Regular rhythm. ABDOMEN: Nontender. EXTREMITIES: Nonedematous. NEUROLOGICAL: grossly intact. IMPRESSION: Hypertensive crisis and diabetes. PLAN: To control blood pressure, we will add hydrochlorothiazide diuretic. Resume amlodipine. We will consider ARB issues and has adverse reaction to lisinopril in the past according to the patient. There is no evidence of proteinuria. No urologic symptoms at this time. No evidence of anemia. Blood sugar 188. BUN and creatinine are normal. Steve Art MD DS/MODL /[id number] cc: Elyssa Yoder MD
[2020-03-22] MEDS: CHLORTHALIDONE 25 MG TAB PO SCH (11:04)
--- NOTE | 2020-03-22 12:03 | Consultation ---
DATE OF CONSULTATION: Neurology Consultation. HISTORY OF PRESENT ILLNESS: A 60-year-old right-handed female, who comes in with hypertensive urgency, paresthesias on the left arm and bilateral lower extremities, mild headache that has been going on for a few hours. She has no history of stroke. Does have history of hypertension. Denies recent tobacco use. History of tobacco use in the past. REVIEW OF SYSTEMS: Includes headache, nausea. No vomiting. Paresthesias, diffusely, chest pain. PHYSICAL EXAMINATION: VITAL SIGNS: Blood pressure on admission was 190s/70s, currently it is 140s/60s. Her heart rate is 86 and regular. Her saturating 99%. She is afebrile. HEENT: Her extraocular muscles intact. Face symmetric. Tongue midline with no visual field cuts. NEURO: Strength is 5/5 in uppers and lowers. Reflexes symmetric 1/4. There is no ataxia. ABDOMEN: Soft and nontender. PULMONARY: Clear to auscultation. ASSESSMENT AND PLAN: The patient comes in with hypertensive urgency with paresthesias, concern for TIA versus posterior reversible encephalopathy syndrome. CT scan is ordered and pending. We will initiate the patient on ASA 325 and statin. No tPA, given the lack of recurrent symptomatology at this time and we will evaluate the patient for neuropathy due to bilateral lower extremity paresthesias in the future. TRACY KOEHLER MD RR/MODL /[id number]
[2020-03-22] MEDS: INSULIN LISPRO 100 UNIT/1 ML 3ML VIAL SQ SCH ×3 (12:36→21:00)
--- NOTE | 2020-03-22 13:00 | NUR ---
PT ARRIVED FROM ER. PT IS AAOX4. EDUCATED PT ABOUT FALL PRECAUTIONS. PT VERBALIZED UNDERSTANDING. BED IS LOW AND LOCKED. SIDE RAILS X2. CALL LIGHT WITH IN EASY REACH. ALL SAFETY MEASURES IN PLACE. PT DENIES NEEDS AT THIS TIME.
[2020-03-22 14:00] VITALS: BP 143/73
[2020-03-22 14:31] VITALS: BP 143/73
[2020-03-22 14:52] LABS: CREATINE KINASE MB 0.7 ng/mL (0-5.0)
[2020-03-22 15:26] VITALS: BP 143/73
[2020-03-22 16:00] VITALS: BP 151/78
--- NOTE | 2020-03-22 16:30 | NUR ---
EDUCATED PY ABOUT HOSPITAL POLICY ON HOME MEDS. PT VERBALIZED UNDERSTANDING.
[2020-03-22] MEDS ORDERED: LOSARTAN POTASSIUM 25 MG TAB PO SCH (17:00)
[2020-03-22] MEDS ORDERED: POTASSIUM CHLORIDE 10MEQ EA PO ONE (19:15)
--- NOTE | 2020-03-22 19:15 | NUR ---
BEDSIDE SHIFT REPORT GIVEN TO THE TACK COVERER RN. PT DENIED FURTHER NEEDS.
--- NOTE | 2020-03-22 19:31 | Consultation ---
DATE OF CONSULTATION: Cardiology consultation REASON FOR CONSULTATION: Chest pain. HISTORY OF PRESENT ILLNESS: This is a 60-year-old woman with a history of diabetes mellitus, and hypertension, who presented to the emergency department with progressively worsening shortness of breath, chest pain, and left arm paresthesias. Her symptoms progressively worsened were associated with nausea and inability to tolerate oral intake. Her symptoms are dlku-wb-gxhrusea intensity, progressively worsening, associated again with central and left-sided chest pain, described as a pressure, and reports numbness and tingling down the left arm. Her symptoms have resolved with resolution of her significant hypertension. No prior cardiac history. REVIEW OF SYSTEMS: A 12-point review of system was conducted, is negative as stated above in the HPI. PAST MEDICAL HISTORY: As stated above in the HPI. PAST SURGICAL HISTORY: None recent. PAST FAMILY HISTORY: Noncontributory to current illness. ALLERGIES: CODEINE. MEDICATIONS: See medications reconciliation form. SOCIAL HISTORY: No illicit drug, alcohol, or tobacco use. PHYSICAL EXAMINATION: VITAL SIGNS: Temperature is 98.0, heart rate 70, respirations are 19, blood pressure is 151/78, and ox saturation 100% on room air. GENERAL: Well appearing, well built, no apparent distress. Alert and orient x3. HEAD: Normocephalic and atraumatic. Eyes, the extraocular muscles are intact. Conjunctivae are clear. NECK: No JVD. No bruits. CARDIOVASCULAR: Regular rate and rhythm. LUNGS: Clear to auscultation. ABDOMEN: Soft, nontender, nondistended. EXTREMITIES: No clubbing, cyanosis, or edema. VASCULAR: 2+ pulses. SKIN: Warm, dry, intact. NEUROLOGIC: No focal deficits noted. Cranial nerves are grossly intact. PSYCHIATRIC: Normal mood and affect. LABORATORY DATA: All laboratory data reviewed. Normal CBC. Creatinine 0.7, potassium 3.4, glucose 151 down from 241. Troponin negative x2. A 12-lead electrocardiogram showed normal sinus rhythm with nonspecific ST-T wave abnormalities. Chest x-ray shows no acute cardiopulmonary abnormality. IMPRESSION: 1. Precordial pain. 2. Transient ischemic attack. 3. Hypertensive urgency. 4. Diabetes mellitus. 5. Obesity. 6. Hyperglycemia. RECOMMENDATIONS: Agree with losartan, however, up titrate this to 25 mg p.o. daily for better blood pressure control. May consider continuation of chlorthalidone however, may also discontinue this and up titration of losartan. We will obtain a 2D echocardiogram. She ruled out for acute myocardial infarction with two sets of negative cardiac enzymes and a nonspecific 12-lead electrocardiogram. If she has a normal echocardiogram, and her blood pressure is controlled, she may be discharged from a cardiovascular standpoint with outpatient followup. DO BRE Kelley/BHAVNA /[id number]
[2020-03-22 20:00] VITALS: BP 159/76
[2020-03-22] MEDS: FAMOTIDINE 20 MG/2 ML VIAL IV SCH (20:00)
--- NOTE | 2020-03-22 20:15 | NUR ---
RECEIVED PT IN BED AOX3 ,DENIES CHEST PAIN NOW .TELE SHOWS SR ,RT AC 20G S/L .CALL LIGHT WITH IN REACH .CONTINUE TO MONITOR
[2020-03-22] MEDS: LOSARTAN POTASSIUM 25 MG TAB PO SCH (21:00)
[2020-03-23] VITALS: BP 148/70
[2020-03-23 04:00] VITALS: BP 142/73
--- NOTE | 2020-03-23 06:15 | NUR ---
PT RESTED DURING THE NIGHT .CALL LIGHT WITH IN REACH ,CONTINUE TO MONITOR
[2020-03-23 06:35] LABS: BASOPHILS # (AUTO) 0.1 (0.0-0.1); EOSINOPHILS # (AUTO) 0.3 (0.0-0.4); EOSINOPHILS % 5.9 % (0.0-6.0); HEMATOCRIT 35.8 % (34.2-44.1); HEMOGLOBIN 11.8 g/dL (12.0-16.0); LYMPHOCYTES # (AUTO) 1.5 (1.0-3.2); LYMPHOCYTES % 28.1 % (18.0-39.1); MEAN CORPUSCULAR HEMOGLOBIN 31.1 pg (28-32); MEAN CORPUSCULAR VOLUME 94.2 fL (81-99); MONOCYTES # (AUTO) 0.5 (0.2-0.8); MONOCYTES % 9.7 % (4.4-11.3); NEUTROPHILS # (AUTO) 2.9 (2.1-6.9); NEUTROPHILS % 55.1 % (38.7-80.0); PLATELET COUNT 183 x10e3/uL (140-360); RED CELL DISTRIBUTION WIDTH 13.8 % (11.7-14.4)
[2020-03-23 07:05] VITALS: BP 152/82
[2020-03-23 07:07] LABS: CREATINE KINASE 22 IU/L (29-168)
--- NOTE | 2020-03-23 07:17 | NUR ---
BEDSIDE REPORT GIVEN TO THE ONCOMING NURSE
[2020-03-23] MEDS: INSULIN LISPRO 100 UNIT/1 ML 3ML VIAL SQ SCH ×3 (07:30→16:30)
[2020-03-23 08:10] LABS: ALANINE AMINOTRANSFERASE 13 IU/L (0-55); ALBUMIN 3.4 g/dL (3.5-5.0); ALBUMIN/GLOBULIN RATIO 1.1 (0.8-2.0); ALKALINE PHOSPHATASE 74 IU/L (40-150); ANION GAP 15.5 mmol/L (8-16); BLOOD UREA NITROGEN 11 mg/dL (7-26); BUN/CREATININE RATIO 16 (6-25); CARBON DIOXIDE 22 mmol/L (22-29); CHLORIDE 103 mmol/L (98-107); CHOL/HDL RATIO 5.1 (3.0-3.6); CHOLESTEROL 210 MD/DL (0-199); CREATININE, SERUM 0.68 mg/dL (0.57-1.11); EST GLOMERULAR FILTRATION RATE > 60 ML/MIN (60-); GLUCOSE 243 mg/dL (74-118); HDL CHOLESTEROL 41 MG/DL (40-60); LDL CHOLESTEROL 132 MG/DL (60-130); POTASSIUM 4.5 mmol/L (3.5-5.1); SODIUM 136 mmol/L (136-145); TRIGLYCERIDES 187 MG/DL (0-149)
[2020-03-23] MEDS: CHLORTHALIDONE 25 MG TAB PO SCH (08:37)
[2020-03-23] MEDS: LOSARTAN POTASSIUM 25 MG TAB PO SCH ×2 (08:37→17:41)
[2020-03-23] MEDS: ASPIRIN 81 MG ENTERIC COATED PO SCH (08:37)
[2020-03-23] MEDS: FAMOTIDINE 20 MG/2 ML VIAL IV SCH (08:37)
[2020-03-23 09:12] VITALS: BP 152/82
[2020-03-23] MEDS ORDERED: LOSARTAN POTASS25 MG PO (09:13)
[2020-03-23] MEDS ORDERED: CHLORTHALIDONE25 MG PO (09:15)
[2020-03-23] MEDS ORDERED: LOW DOSE ASPIRI81 MG PO (09:17)
[2020-03-23] MEDS: HEPARIN SOD (PORCINE) 5,000 UNIT/ML VIAL SC SCH (09:17)
[2020-03-23] MEDS ORDERED: ATORVASTATIN CA20 MG PO (09:19)
--- NOTE | 2020-03-23 09:31 | NUR ---
calm. headache resolved 98.0 73 152/82 calm, eomi perrl no visual field cut neck- supple rrr cta speech clear and fluent strength 5/5 reflexes 2/4 sensory grossly intact no ataxia a/p HTN urgency - no evidence of focal neuro deficit asa 325 and statin and risk factor modification to decrease stroke risk neuropathy - outpt follow up and evaluation outpt neurology follow up
[2020-03-23 11:35] VITALS: BP 153/74
[2020-03-23 14:10] LABS: FREE T4 (FREE THYROXINE) 0.96 ng/dL (0.8-1.8); THYROID STIMULATING HORMONE 2.362 uIU/mL (0.350-4.940)
[2020-03-23] MEDS ORDERED: SITAGLIPTIN 100 MG TAB PO SCH (14:30)
--- NOTE | 2020-03-23 14:42 | Consultation ---
DATE OF CONSULTATION: 03/23/2020 Endocrine Consultation. SOURCE OF CONSULTATION: The patient of Dr. Art. HISTORY OF PRESENT ILLNESS: Thank you very much for referring this patient. This is a 60-year-old female who was referred to me for evaluation of uncontrolled diabetes mellitus. The patient reportedly is a known diabetic for almost 8-10 years and takes metformin 1000 mg twice daily. The patient came to the hospital at this time with a history of dizziness, accelerated hypertension, and uncontrolled diabetes mellitus. The patient also has longstanding history of hypertension. She also complaining of some numbness on the left upper and lower extremity. She is being evaluated by the cardiac group. MEDICATIONS: Include chlorthalidone 25 mg once daily and losartan 25 mg once daily. PHYSICAL EXAMINATION: GENERAL: Today, the patient is alert, awake, little bit apprehensive. VITAL SIGNS: Her heart rate is around 78, blood pressure is 142/76 mmHg. HEENT: Essentially unremarkable. Thyroid is palpable. Clinically, she is near euthyroid. CHEST: Bilateral vesicular breathing. No rales. CARDIOVASCULAR: First and second heart sounds. There is no 3rd or 4th heart sound. Ejection systolic murmur of grade 2/6. EXTREMITIES: The patient has evidence of diabetic sensory neuropathy in both lower extremities. LABORATORY DATA: Her blood sugars during the hospital stay have been ranging between 243-238. Her lipids are elevated. Her glycohemoglobin is 8.0. CLINICAL IMPRESSION: Diabetes mellitus type 2, uncontrolled with complications, accelerated hypertension, hyperlipidemia. PLAN: The plan at this time is to do a thyroid profile. The treatment options were discussed with the patient, including insulin. The patient is very reluctant to take insulin at this time. We can start her on the Janumet and follow her up in about a week to 10 days. Thanks for referring this patient. I will be following this patient. MD TYRESE Miguel/MODL /[id number]
[2020-03-23] MEDS ORDERED: JANUMET XR 50-1 EAC1 PO (15:41)
[2020-03-23 16:00] VITALS: BP 147/82
--- NOTE | 2020-03-23 16:32 | NUR ---
Discharge education given along with the discharge packet. Prescription given. Verbalized understanding regarding follow-up appointment with the PCP and Dr. Rm. PIV to right AC removed, catheter intact, occlusive dressing applied as patient easily bleeds. No bleeding noted. Transported patient via wheelchair to private vehicle with all personal belongings taken.
[2020-03-23] MEDS ORDERED: JANUMET 50-1,01 EACH PO (16:42)
[2020-03-23] MEDS ORDERED: METFORMIN HCL 500 MG TAB CR PO SCH (17:00)
--- NOTE | 2020-03-23 17:12 | Progress Note ---
DATE: Cardiology Progress Note SUBJECTIVE: The patient is feeling much better. Denies any chest pain, shortness of breath, or paresthesias. OBJECTIVE: VITAL SIGNS: Temperature is 98.1, heart rate 81, respirations 16, blood pressure is 152/82, and oxygen saturation is 100% on room air. GENERAL: Well appearing, in no apparent distress. CARDIOVASCULAR: Regular rate and rhythm. LUNGS: Clear to auscultation. ABDOMEN: Soft, nontender, and nondistended. EXTREMITIES: No clubbing, cyanosis, or edema. VASCULAR: 2+ pulses. SKIN: Warm, dry, and intact. LABORATORY DATA: Reviewed. Telemetry monitoring was personally reviewed by myself and shows normal sinus rhythm. IMPRESSION: 1. Hypertensive urgency. 2. Precordial pain. 3. Transient ischemic attack. 4. Diabetes mellitus. 5. Obesity. 6. Hyperglycemia. RECOMMENDATIONS: Continue current antihypertensives with up titration of losartan. Her echocardiogram showed preserved left ventricular systolic function. She has ruled out for acute myocardial infarction. The patient may be discharged from a cardiovascular standpoint with outpatient followup for stress testing. DO BRE Kelley/BHAVNA /[id number]
--- NOTE | 2020-03-23 19:07 | Discharge Summary ---
The patient admitted with hypertensive urgency and encephalopathy with a posterior reversible encephalopathy. She was found to have poorly controlled diabetes. She has not been following up with her physician, Dr. Elyssa Yoder. She also had chest pain. Her blood pressure was quite elevated on admission, 227/91. She was seen by Cardiology, Neurology, and Endocrinology. The patient improved rapidly and was discharged, to be followed by Dr. Elyssa Yoder and Dr. Rm as an outpatient. Her metformin was discontinued. She was placed on Janumet b.i.d., aspirin 81, chlorthalidone 25 mg, losartan 25 b.i.d., Pepcid 20 b.i.d., Lipitor 20. Insulin was discussed, but she declined . Discharge much improved, to follow up with Dr. Elyssa Yoder. Thank you for this kind referral. Steve Art MD DS/MODL /[id number] cc: Dr. Yoder
[2020-03-23] MEDS ORDERED: ATORVASTATIN 20 MG TAB PO SCH (21:00)
== END 2020-03-23 17:55 | disposition home or self-care (01) ==
LOC: ER 07:20 → ERHOLD 08:25 → MED/SURG2 13:15
PROVIDERS: ADMIT Internal Medicine; ATTEND Internal Medicine
DX: G93.40 Encephalopathy, unspecified (principal); E11.65 Type 2 diabetes mellitus with hyperglycemia; I67.4 Hypertensive encephalopathy; E78.5 Hyperlipidemia, unspecified; G45.9 Transient cerebral ischemic attack, unspecified; E66.9 Obesity, unspecified; Z68.32 Body mass index [BMI] 32.0-32.9, adult; Z11.59 Encounter for screening for other viral diseases
CPT/HCPCS: 36415 ×2; 70450; 71045; 80053 ×2; 80061; 80307; 81001; 82550 ×2; 82553 ×2; 82948 ×2; 83036; 84439; 84443; 84484 ×2; 85025 ×2; 85610; 93005; 93306; 99284; G0378 ×2; J1644 ×2; J1885; U0002

== ENCOUNTER 2020-10-13 11:16 | Emergency (ER) | payer OTHER ==
[~2020-10-13] VITALS: Ht 154.9 cm; Wt 77.1 kg
[~2020-10-13 11:16] MED LIST: AMLODIPINE BES2.5 MG PO; ATORVASTATIN CA20 MG PO; CHLORTHALIDONE25 MG PO; JANUMET 50-1,01 EACH PO; JANUMET XR 50-1 EAC1 PO; LOSARTAN POTASS25 MG PO; LOW DOSE ASPIRI81 MG PO; METFORMIN HCL500 MG PO
== END 2020-10-13 13:45 | disposition home or self-care (01) ==
LOC: ER 11:56
DX: M79.662 Pain in left lower leg (principal); W19.XXXA Unspecified fall, initial encounter; I10 Essential (primary) hypertension; E11.9 Type 2 diabetes mellitus without complications; E78.5 Hyperlipidemia, unspecified; F41.9 Anxiety disorder, unspecified; F32.9 Major depressive disorder, single episode, unspecified
CPT/HCPCS: 99283

== ENCOUNTER 2020-10-27 13:47 | Observation (INO) | payer OTHER ==
[~2020-10-27] VITALS: Ht 154.9 cm; Wt 77.1 kg
[2020-10-27] MEDS ORDERED: ASPIRIN 81 MG CHEW TAB PO STA (14:38)
[2020-10-27] MEDS ORDERED: SODIUM CHLORIDE 0.9% 1000ML 1,000 ML IV STA (14:38)
[2020-10-27] MEDS ORDERED: MECLIZINE HCL 12.5 MG TAB PO ONE (14:45)
[2020-10-27 14:59] LABS: BASOPHILS # (AUTO) 0.1 (0.0-0.1); BASOPHILS % 0.7 % (0.0-1.0); EOSINOPHILS # (AUTO) 0.2 (0.0-0.4); EOSINOPHILS % 2.4 % (0.0-6.0); HEMATOCRIT 37.5 % (34.2-44.1); HEMOGLOBIN 12.5 g/dL (12.0-16.0); LYMPHOCYTES # (AUTO) 1.6 (1.0-3.2); LYMPHOCYTES % 23.9 % (18.0-39.1); MEAN CORPUSCULAR HEMOGLOBIN 29.8 pg (28-32); MEAN CORPUSCULAR HGB CONC 33.3 g/dL (31-35); MEAN CORPUSCULAR VOLUME 89.5 fL (81-99); MONOCYTES # (AUTO) 0.5 (0.2-0.8); MONOCYTES % 7.2 % (4.4-11.3); NEUTROPHILS # (AUTO) 4.4 (2.1-6.9); NEUTROPHILS % 65.4 % (38.7-80.0); PLATELET COUNT 184 x10e3/uL (140-360); RED BLOOD COUNT 4.19 x10e6/uL (3.6-5.1)
[2020-10-27 15:02] LABS: CLARITY,URINE SL CLOUDY (CLEAR); COLOR,URINE YELLOW (YELLOW); KETONES,URINE NEGATIVE (NEGATIVE); LEUKOCYTE ESTERASE ,URINE TRACE (NEGATIVE); NITRITE,URINE NEGATIVE (NEGATIVE); PROTEIN,URINE DIPSTICK NEGATIVE (NEGATIVE); URINE UROBILINOGEN 1 mg/dL (0.2 - 1)
[2020-10-27 15:10] LABS: INR 0.92; PROTHROMBIN TIME 12.9 seconds (11.9-14.5)
[2020-10-27 15:11] LABS: PARTIAL THROMBOPLASTIN TIME 27.9 seconds (23.8-35.5)
[2020-10-27 15:20] LABS: EPITHELIAL CELLS,URINE FEW /LPF; WBC,URINE (MAN) 0-5 /HPF (0-5)
[2020-10-27 15:21] LABS: ALANINE AMINOTRANSFERASE 8 IU/L (0-55); ALBUMIN 3.9 g/dL (3.5-5.0); ALKALINE PHOSPHATASE 100 IU/L (40-150); ANION GAP 15.8 mmol/L (8-16); BLOOD UREA NITROGEN 6 mg/dL (7-26); BUN/CREATININE RATIO 9 (6-25); CALCIUM 9.1 mg/dL (8.4-10.2); CARBON DIOXIDE 23 mmol/L (22-29); CHLORIDE 99 mmol/L (98-107); CREATINE KINASE 24 IU/L (29-168); EST GLOMERULAR FILTRATION RATE > 60 ML/MIN (60-); GLUCOSE 310 mg/dL (74-118); MAGNESIUM 1.8 MG/DL (1.3-2.1); POTASSIUM 3.8 mmol/L (3.5-5.1); SODIUM 134 mmol/L (136-145)
[2020-10-27] MEDS ORDERED: NITROGLYCERIN 0.4 MG SUBL SL PRN (16:00)
[2020-10-27] MEDS ORDERED: ONDANSETRON HCL INJ 2MG/ML 2ML 2 MG/ML VIAL IV PRN (16:00)
[2020-10-27] MEDS ORDERED: DEXTROSE 50% SYRINGE 50 ML IV PRN (16:00)
[2020-10-27] MEDS: FAMOTIDINE 20 MG/2 ML VIAL IV SCH (18:26)
[2020-10-27] MEDS: INSULIN LISPRO 100 UNIT/1 ML 3ML VIAL SQ SCH ×2 (18:26→21:00)
[2020-10-27 19:58] LABS: CREATINE KINASE 23 IU/L (29-168)
[2020-10-27 20:15] VITALS: BP 160/86
[2020-10-27] MEDS ORDERED: METFORMIN HCL500 MG PO (20:31)
[2020-10-27] MEDS ORDERED: AMLODIPINE BESYL5 MG PO (20:31)
[2020-10-27] MEDS ORDERED: HYDRALAZINE HCL10 MG PO (20:35)
[2020-10-27 20:36] VITALS: BP 160/86
[2020-10-28] VITALS (8 sets, daily range): BP systolic 136–175; BP diastolic 70–79
[2020-10-28 06:10] LABS: BASOPHILS # (AUTO) 0.1 (0.0-0.1); BASOPHILS % 0.8 % (0.0-1.0); EOSINOPHILS # (AUTO) 0.3 (0.0-0.4); EOSINOPHILS % 5.1 % (0.0-6.0); HEMATOCRIT 37.2 % (34.2-44.1); HEMOGLOBIN 12.1 g/dL (12.0-16.0); LYMPHOCYTES # (AUTO) 2.2 (1.0-3.2); LYMPHOCYTES % 34.3 % (18.0-39.1); MEAN CORPUSCULAR HEMOGLOBIN 29.4 pg (28-32); MEAN CORPUSCULAR HGB CONC 32.5 g/dL (31-35); MEAN CORPUSCULAR VOLUME 90.3 fL (81-99); MONOCYTES # (AUTO) 0.6 (0.2-0.8); MONOCYTES % 9.2 % (4.4-11.3); NEUTROPHILS # (AUTO) 3.2 (2.1-6.9); NEUTROPHILS % 50.3 % (38.7-80.0); PLATELET COUNT 208 x10e3/uL (140-360); RED BLOOD COUNT 4.12 x10e6/uL (3.6-5.1); RED CELL DISTRIBUTION WIDTH 13.9 % (11.7-14.4)
[2020-10-28] MEDS: FAMOTIDINE 20 MG/2 ML VIAL IV SCH (06:20)
[2020-10-28 06:25] LABS: CREATINE KINASE 15 IU/L (29-168)
[2020-10-28 06:47] LABS: ALANINE AMINOTRANSFERASE 9 IU/L (0-55); ALBUMIN 3.5 g/dL (3.5-5.0); ALKALINE PHOSPHATASE 83 IU/L (40-150); ANION GAP 15.2 mmol/L (8-16); BLOOD UREA NITROGEN 11 mg/dL (7-26); BUN/CREATININE RATIO 17 (6-25); CARBON DIOXIDE 23 mmol/L (22-29); CHLORIDE 104 mmol/L (98-107); CHOL/HDL RATIO 5.5 (3.0-3.6); CHOLESTEROL 210 MD/DL (0-199); CREATININE, SERUM 0.63 mg/dL (0.57-1.11); EST GLOMERULAR FILTRATION RATE > 60 ML/MIN (60-); GLUCOSE 175 mg/dL (74-118); HDL CHOLESTEROL 38 MG/DL (40-60); LDL CHOLESTEROL 145 MG/DL (60-130); POTASSIUM 4.2 mmol/L (3.5-5.1); SODIUM 138 mmol/L (136-145); TRIGLYCERIDES 133 MG/DL (0-149)
[2020-10-28] MEDS: INSULIN LISPRO 100 UNIT/1 ML 3ML VIAL SQ SCH ×4 (07:30→20:43)
[2020-10-28] MEDS: ASPIRIN 81 MG ENTERIC COATED PO SCH (09:13)
[2020-10-28] MEDS ORDERED: HYDRALAZINE HCL 20 MG/ML VIAL IV PRN (09:15)
[2020-10-28] MEDS ORDERED: HYDRALAZINE HCL 10 MG TAB PO PRN (09:15)
[2020-10-28] MEDS ORDERED: POLYETHYLENE GLYCOL 3350 17 GM PACK PO PRN (09:15)
[2020-10-28] MEDS ORDERED: ACETAMINOPHEN 325 MG TAB PO PRN (09:15)
[2020-10-28] MEDS: FAMOTIDINE 20 MG TAB PO SCH ×2 (10:05→16:36)
[2020-10-28] MEDS: METFORMIN HCL 500 MG TAB PO SCH ×2 (10:05→16:36)
[2020-10-28] MEDS: AMLODIPINE BESYLATE 5 MG TAB PO SCH (10:15)
[2020-10-28] MEDS: MECLIZINE HCL 12.5 MG TAB PO PRN (12:27)
[2020-10-28] MEDS: DOCUSATE SODIUM 100 MG CAP PO SCH (16:36)
[2020-10-28] MEDS ORDERED: MELATONIN 3 MG TAB PO PRN (21:00)
[2020-10-28] MEDS ORDERED: MELATONIN 3 MG TAB PO ONE (21:00)
[2020-10-28] MEDS ORDERED: SIMVASTATIN 20 MG TAB PO SCH (21:00)
[2020-10-29] VITALS (10 sets, daily range): BP systolic 130–183; BP diastolic 62–82
[2020-10-29 05:47] LABS: BASOPHILS # (AUTO) 0.1 (0.0-0.1); BASOPHILS % 1.1 % (0.0-1.0); EOSINOPHILS # (AUTO) 0.4 (0.0-0.4); EOSINOPHILS % 5.3 % (0.0-6.0); HEMATOCRIT 37.5 % (34.2-44.1); HEMOGLOBIN 12.1 g/dL (12.0-16.0); LYMPHOCYTES # (AUTO) 2.3 (1.0-3.2); LYMPHOCYTES % 32.1 % (18.0-39.1); MEAN CORPUSCULAR HEMOGLOBIN 29.2 pg (28-32); MEAN CORPUSCULAR HGB CONC 32.3 g/dL (31-35); MEAN CORPUSCULAR VOLUME 90.4 fL (81-99); MONOCYTES # (AUTO) 0.6 (0.2-0.8); MONOCYTES % 8.5 % (4.4-11.3); NEUTROPHILS # (AUTO) 3.7 (2.1-6.9); PLATELET COUNT 210 x10e3/uL (140-360); RED BLOOD COUNT 4.15 x10e6/uL (3.6-5.1); RED CELL DISTRIBUTION WIDTH 13.9 % (11.7-14.4)
[2020-10-29 06:24] LABS: BLOOD UREA NITROGEN 16 mg/dL (7-26); BUN/CREATININE RATIO 24 (6-25); CALCIUM 8.9 mg/dL (8.4-10.2); CARBON DIOXIDE 23 mmol/L (22-29); CHLORIDE 100 mmol/L (98-107); CREATININE, SERUM 0.67 mg/dL (0.57-1.11); EST GLOMERULAR FILTRATION RATE > 60 ML/MIN (60-); GLUCOSE 224 mg/dL (74-118); MAGNESIUM 1.7 MG/DL (1.3-2.1); PHOSPHORUS 4.6 MG/DL (2.3-4.7); SODIUM 134 mmol/L (136-145)
[2020-10-29] MEDS: INSULIN LISPRO 100 UNIT/1 ML 3ML VIAL SQ SCH ×3 (07:30→16:30)
[2020-10-29] MEDS: FAMOTIDINE 20 MG TAB PO SCH ×2 (08:03→16:19)
[2020-10-29] MEDS: DOCUSATE SODIUM 100 MG CAP PO SCH ×2 (08:04→16:19)
[2020-10-29] MEDS: ASPIRIN 81 MG ENTERIC COATED PO SCH (08:04)
[2020-10-29] MEDS: METFORMIN HCL 500 MG TAB PO SCH ×2 (08:29→16:19)
[2020-10-29] MEDS: AMLODIPINE BESYLATE 5 MG TAB PO SCH (08:30)
[2020-10-29] MEDS ORDERED: AMLODIPINE BESYLATE 5 MG TAB PO SCH (09:00)
[2020-10-29] MEDS: MECLIZINE HCL 12.5 MG TAB PO PRN (09:10)
[2020-10-29] MEDS ORDERED: MAGNESIUM OXIDE 400 MG TAB PO NR (10:00)
[2020-10-29] MEDS ORDERED: MELATONIN3 MG PO (15:57)
[2020-10-29] MEDS ORDERED: ASPIRIN EC81 MG PO (15:57)
[2020-10-29] MEDS ORDERED: Meclizine Hcl PO (15:57)
[2020-10-29] MEDS ORDERED: SIMVASTATIN20 MG PO (15:57)
[2020-10-29] MEDS ORDERED: NORVASC10 MG PO (15:57)
== END 2020-10-29 18:45 | disposition home or self-care (01) ==
LOC: ER 14:04 → ERHOLD 16:01 → MED/SURG3 19:27
PROVIDERS: ADMIT Internal Medicine; ATTEND Internal Medicine
DX: R42 Dizziness and giddiness (principal); E11.65 Type 2 diabetes mellitus with hyperglycemia; E66.9 Obesity, unspecified; Z68.32 Body mass index [BMI] 32.0-32.9, adult; I10 Essential (primary) hypertension; R07.9 Chest pain, unspecified; R20.2 Paresthesia of skin; E78.2 Mixed hyperlipidemia; F32.9 Major depressive disorder, single episode, unspecified; F41.9 Anxiety disorder, unspecified; E11.40 Type 2 diabetes mellitus with diabetic neuropathy, unspecified; H93.19 Tinnitus, unspecified ear; Z20.822 Contact with and (suspected) exposure to COVID-19
CPT/HCPCS: 36415 ×3; 70450; 71045; 80048; 80053 ×2; 80061; 81001; 82550 ×2; 82553 ×2; 82948 ×3; 83735 ×2; 83880; 84100; 84484 ×2; 85025 ×3; 85610; 85730; 87086; 93005; 97116; 97161; 99284; G0378 ×3; J0360; J7030; J8597 ×3; U0002

== ENCOUNTER 2022-02-11 17:05 | Emergency (ER) | payer OTHER ==
[~2022-02-11] VITALS: Ht 154.9 cm; Wt 77.1 kg
[~2022-02-11 17:05] MED LIST changes: +AMLODIPINE BESYL5 MG PO; +ASPIRIN EC81 MG PO; +HYDRALAZINE HCL10 MG PO; +MELATONIN3 MG PO; +Meclizine Hcl PO; +NORVASC10 MG PO; +SIMVASTATIN20 MG PO
[2022-02-11] MEDS ORDERED: KETOROLAC TROMETHAMINE 30 MG/ML VIAL IM STA (17:43)
[2022-02-11] MEDS ORDERED: HYDROCODON-ACE1 EA11 PO ×2 (18:34→18:49)
== END 2022-02-11 18:30 | disposition home or self-care (01) ==
LOC: ER 17:13
DX: M25.511 Pain in right shoulder (principal); S42.291A Other displaced fracture of upper end of right humerus, initial encounter for closed fracture; W18.39XA Other fall on same level, initial encounter; Y93.01 Activity, walking, marching and hiking; Y92.89 Other specified places as the place of occurrence of the external cause
CPT/HCPCS: 73030; 73080; 99283; J1885

== ENCOUNTER 2022-02-17 13:30 | Inpatient (IN) | payer MEDICAID, OTHER ==
[~2022-02-17] VITALS: Ht 154.9 cm; Wt 77.1 kg
[~2022-02-17 13:30] MED LIST changes: +HYDROCODON-ACE1 EA11 PO
[2022-02-17] MEDS ORDERED: CEFTRIAXONE 1 GM VIAL IM ONE (13:45)
[2022-02-17] MEDS ORDERED: DOXYCYCLINE HY100 MG PO (13:46)
[2022-02-17] MEDS ORDERED: CEFDINIR300 MG PO (13:47)
[2022-02-17] MEDS ORDERED: Vancomycin IV 1 GM in SODIUM CHLORIDE 0.9% 250ML 250 ML IV STA (14:07)
[2022-02-17] MEDS ORDERED: PIPERACILLIN/TAZOBACTAM 4.5 GM in SODIUM CHLORIDE 0.9% 100 ML IV STA (14:07)
[2022-02-17] MEDS ORDERED: SODIUM CHLORIDE 0.9% 1000ML 1,000 ML IV SCH (14:30)
[2022-02-17 14:42] LABS: BASOPHILS # (AUTO) 0.1 (0.0-0.1); BASOPHILS % 0.8 % (0.0-1.0); EOSINOPHILS # (AUTO) 0.1 (0.0-0.4); EOSINOPHILS % 1.1 % (0.0-6.0); HEMATOCRIT 30.2 % (34.2-44.1); HEMOGLOBIN 10.1 g/dL (12.0-16.0); LYMPHOCYTES # (AUTO) 1.2 (1.0-3.2); LYMPHOCYTES % 19.8 % (18.0-39.1); MEAN CORPUSCULAR HEMOGLOBIN 29.6 pg (28-32); MEAN CORPUSCULAR HGB CONC 33.4 g/dL (31-35); MEAN CORPUSCULAR VOLUME 88.6 fL (81-99); MONOCYTES # (AUTO) 0.6 (0.2-0.8); MONOCYTES % 10.1 % (4.4-11.3); NEUTROPHILS # (AUTO) 4.2 (2.1-6.9); NEUTROPHILS % 67.6 % (38.7-80.0); PLATELET COUNT 231 x10e3/uL (140-360); RED BLOOD COUNT 3.41 x10e6/uL (3.6-5.1); RED CELL DISTRIBUTION WIDTH 14.8 % (11.7-14.4)
[2022-02-17 14:58] LABS: ALBUMIN 3.1 g/dL (3.5-5.0); ALBUMIN/GLOBULIN RATIO 0.8 (0.8-2.0); ANION GAP 22.4 mmol/L (8-16); CALCIUM 8.9 mg/dL (8.4-10.2); CREATININE, SERUM 0.82 mg/dL (0.57-1.11); POTASSIUM 4.4 mmol/L (3.5-5.1)
[2022-02-17] MEDS ORDERED: IOPAMIDOL 370 MG/ML 100 ML INFUS..BTL INJ ONE (15:30)
[2022-02-17] MEDS ORDERED: DEXTROSE 50% SYRINGE 50 ML IV PRN (17:00)
[2022-02-17] MEDS ORDERED: Morphine 4mg INJECTION 4 MG/ML INJ IV PRN (17:00)
[2022-02-17] MEDS ORDERED: ONDANSETRON HCL INJ 2MG/ML 2ML 2 MG/ML VIAL IV PRN ×2 (17:00→18:30)
[2022-02-17] MEDS ORDERED: INSULIN REGULAR, HUMAN 100 UNIT/1 ML SQ ONE (17:00)
[2022-02-17] MEDS ORDERED: MELATONIN 3 MG TAB PO PRN (18:30)
[2022-02-17] MEDS ORDERED: ACETAMINOPHEN 325 MG TAB PO PRN (18:30)
[2022-02-17 20:00] VITALS: BP 140/63
[2022-02-17 20:10] VITALS: BP 140/63
[2022-02-17 20:12] VITALS: BP 140/63
[2022-02-17] MEDS: SIMVASTATIN 20 MG TAB PO SCH (21:00)
[2022-02-17] MEDS: INSULIN REGULAR, HUMAN 100 UNIT/1 ML SQ SCH (21:23)
[2022-02-17] MEDS: SODIUM CHLORIDE 0.9% 1000ML 1,000 ML IV SCH (21:23)
[2022-02-17] MEDS: HYDROCODONE/APAP 5MG-325MG TAB PO PRN (21:25)
[2022-02-17] MEDS: Vancomycin IV 1 GM in SODIUM CHLORIDE 0.9% 250ML 250 ML IV SCH (21:30)
[2022-02-18] VITALS (7 sets, daily range): BP systolic 119–159; BP diastolic 59–75
[2022-02-18 05:21] LABS: BASOPHILS # (AUTO) 0.1 (0.0-0.1); BASOPHILS % 1.2 % (0.0-1.0); EOSINOPHILS # (AUTO) 0.2 (0.0-0.4); EOSINOPHILS % 3.1 % (0.0-6.0); HEMATOCRIT 30.6 % (34.2-44.1); HEMOGLOBIN 9.8 g/dL (12.0-16.0); LYMPHOCYTES # (AUTO) 1.7 (1.0-3.2); LYMPHOCYTES % 35.1 % (18.0-39.1); MEAN CORPUSCULAR HEMOGLOBIN 28.9 pg (28-32); MEAN CORPUSCULAR VOLUME 90.3 fL (81-99); MONOCYTES # (AUTO) 0.6 (0.2-0.8); MONOCYTES % 11.5 % (4.4-11.3); NEUTROPHILS # (AUTO) 2.4 (2.1-6.9); NEUTROPHILS % 48.7 % (38.7-80.0); PLATELET COUNT 236 x10e3/uL (140-360); RED BLOOD COUNT 3.39 x10e6/uL (3.6-5.1)
[2022-02-18] MEDS: INSULIN REGULAR, HUMAN 100 UNIT/1 ML SQ SCH ×4 (07:30→21:00)
[2022-02-18 07:53] LABS: CALCIUM 8.2 mg/dL (8.4-10.2); CREATININE, SERUM 0.55 mg/dL (0.57-1.11)
[2022-02-18] MEDS: AMLODIPINE BESYLATE 10 MG TAB PO SCH (10:00)
[2022-02-18] MEDS: Vancomycin IV 1 GM in SODIUM CHLORIDE 0.9% 250ML 250 ML IV SCH ×2 (10:00→21:30)
[2022-02-18] MEDS: ASPIRIN 81 MG ENTERIC COATED PO SCH (10:00)
[2022-02-18] MEDS ORDERED: POTASSIUM CHLORIDE 10MEQ EA PO ONE (10:45)
[2022-02-18] MEDS: SODIUM CHLORIDE 0.9% 1000ML 1,000 ML IV SCH (16:51)
[2022-02-18] MEDS: SIMVASTATIN 20 MG TAB PO SCH ×2 (21:00→21:31)
[2022-02-18] MEDS: HYDROCODONE/APAP 5MG-325MG TAB PO PRN (21:00)
[2022-02-19] VITALS (9 sets, daily range): BP systolic 111–179; BP diastolic 50–76
[2022-02-19] MEDS: SODIUM CHLORIDE 0.9% 1000ML 1,000 ML IV SCH ×5 (00:48→22:06)
[2022-02-19] MEDS: INSULIN REGULAR, HUMAN 100 UNIT/1 ML SQ SCH ×4 (08:00→20:22)
[2022-02-19] MEDS: ASPIRIN 81 MG ENTERIC COATED PO SCH (09:22)
[2022-02-19] MEDS: AMLODIPINE BESYLATE 10 MG TAB PO SCH (09:23)
[2022-02-19] MEDS: HYDROCODONE/APAP 5MG-325MG TAB PO PRN ×2 (09:23→16:12)
[2022-02-19] MEDS: Vancomycin IV 1 GM in SODIUM CHLORIDE 0.9% 250ML 250 ML IV SCH ×2 (09:24→20:15)
[2022-02-19] MEDS ORDERED: POTASSIUM CHLORIDE 10MEQ EA PO ONE (10:45)
[2022-02-19] MEDS: SIMVASTATIN 20 MG TAB PO SCH (20:15)
[2022-02-20] VITALS (7 sets, daily range): BP systolic 126–204; BP diastolic 65–114
[2022-02-20] MEDS: SODIUM CHLORIDE 0.9% 1000ML 1,000 ML IV SCH ×2 (00:39→08:30)
[2022-02-20 05:13] LABS: ANION GAP 16.4 mmol/L (8-16); CALCIUM 10.7 mg/dL (8.4-10.2); CREATININE, SERUM 0.7 mg/dL (0.57-1.11); POTASSIUM 3.4 mmol/L (3.5-5.1)
[2022-02-20] MEDS: INSULIN REGULAR, HUMAN 100 UNIT/1 ML SQ SCH ×4 (07:30→21:29)
[2022-02-20] MEDS: ASPIRIN 81 MG ENTERIC COATED PO SCH (08:22)
[2022-02-20] MEDS: Vancomycin IV 1 GM in SODIUM CHLORIDE 0.9% 250ML 250 ML IV SCH ×2 (08:22→21:26)
[2022-02-20] MEDS: AMLODIPINE BESYLATE 10 MG TAB PO SCH (08:24)
[2022-02-20] MEDS ORDERED: POTASSIUM CHLORIDE 10MEQ EA PO ONE (10:45)
[2022-02-20] MEDS ORDERED: ONDANSETRON HCL 4 MG ORAL DISINTEGRATING TAB PO PRN (11:30)
[2022-02-20] MEDS: SIMVASTATIN 20 MG TAB PO SCH (21:00)
[2022-02-21] VITALS (7 sets, daily range): BP systolic 100–204; BP diastolic 76–127
[2022-02-21] MEDS: HYDROCODONE/APAP 5MG-325MG TAB PO PRN (06:03)
[2022-02-21] MEDS: INSULIN REGULAR, HUMAN 100 UNIT/1 ML SQ SCH ×2 (07:30→12:11)
[2022-02-21] MEDS: Vancomycin IV 1 GM in SODIUM CHLORIDE 0.9% 250ML 250 ML IV SCH (09:10)
[2022-02-21] MEDS: AMLODIPINE BESYLATE 10 MG TAB PO SCH (09:11)
[2022-02-21] MEDS: ASPIRIN 81 MG ENTERIC COATED PO SCH (09:11)
[2022-02-21] MEDS ORDERED: BACTRIM DS TAB1 EACH PO (10:14)
[2022-02-21] MEDS ORDERED: HYDRALAZINE HCL 25 MG TAB PO ONE (10:45)
== END 2022-02-21 13:40 | disposition home or self-care (01) | DRG 950 ==
LOC: ER 13:42 → ERHOLD 16:51 → MED/SURG 18:26
PROVIDERS: ADMIT Internal Medicine; ATTEND Internal Medicine
DX: S01.82XD Laceration with foreign body of other part of head, subsequent encounter (principal); I10 Essential (primary) hypertension; E11.69 Type 2 diabetes mellitus with other specified complication; F41.9 Anxiety disorder, unspecified; E87.6 Hypokalemia; E78.00 Pure hypercholesterolemia, unspecified; K05.219 Aggressive periodontitis, localized, unspecified severity; S42.301D Unspecified fracture of shaft of humerus, right arm, subsequent encounter for fracture with routine healing; B96.89 Other specified bacterial agents as the cause of diseases classified elsewhere; Z20.822 Contact with and (suspected) exposure to COVID-19
CPT/HCPCS: 0223U; 36415; 70487; 80048; 80053; 80202; 82948; 83036; 83605; 85025; 87071; 87205; 94799; 96372; 99251; 99284; J1817; J2405; J2543; J3370; J7030; J7050; Q9967

== ENCOUNTER 2023-09-26 08:31 | Emergency (ER) | payer MEDICAID ==
[~2023-09-26] VITALS: Ht 157.5 cm; Wt 75.7 kg
[~2023-09-26 08:31] MED LIST changes: +BACTRIM DS TAB1 EACH PO; +CEFDINIR300 MG PO; +DOXYCYCLINE HY100 MG PO
[2023-09-26 10:07] LABS: BASOPHILS % 0.3 % (0.0-1.0); EOSINOPHILS % 0.1 % (0.0-6.0); HEMATOCRIT 33.8 % (34.2-44.1); HEMOGLOBIN 11.3 g/dL (12.0-16.0); LYMPHOCYTES # (AUTO) 0.5 (1.0-3.2); LYMPHOCYTES % 4.2 % (18.0-39.1); MEAN CORPUSCULAR HEMOGLOBIN 28.4 pg (28-32); MEAN CORPUSCULAR HGB CONC 33.4 g/dL (31-35); MEAN CORPUSCULAR VOLUME 84.9 fL (81-99); MONOCYTES # (AUTO) 0.6 (0.2-0.8); MONOCYTES % 4.9 % (4.4-11.3); NEUTROPHILS # (AUTO) 10.4 (2.1-6.9); NEUTROPHILS % 89.7 % (38.7-80.0); PLATELET COUNT 177 x10e3/uL (140-360); RED BLOOD COUNT 3.98 x10e6/uL (3.6-5.1); RED CELL DISTRIBUTION WIDTH 14.7 % (11.7-14.4); WHITE BLOOD COUNT 11.57 x10e3/uL (4.8-10.8)
[2023-09-26 10:22] LABS: INR 1.05; PARTIAL THROMBOPLASTIN TIME 28.1 seconds (23.8-35.5); PROTHROMBIN TIME 14.4 seconds (11.9-14.5)
[2023-09-26] MEDS: SODIUM CHLORIDE 0.9% 1000ML 1,000 ML IV STA (10:22)
[2023-09-26] MEDS: ONDANSETRON HCL INJ 2MG/ML 2ML 2 MG/ML VIAL IV STA (10:22)
[2023-09-26] MEDS ORDERED: ONDANSETRON HCL INJ 2MG/ML 2ML 2 MG/ML VIAL ONE (10:23)
[2023-09-26] MEDS ORDERED: SODIUM CHLORIDE 0.9% 1000ML 1,000 ML ONE (10:23)
[2023-09-26 10:29] LABS: ALBUMIN 3.7 g/dL (3.5-5.0); ANION GAP 17.4 mmol/L (8-16); BILIRUBIN,TOTAL 1.6 mg/dL (0.2-1.2); CALCIUM 9.2 mg/dL (8.4-10.2); CREATININE, SERUM 0.88 mg/dL (0.57-1.11); TOTAL PROTEIN 7.3 g/dL (6.5-8.1)
[2023-09-26 10:35] LABS: POTASSIUM 3.4 mmol/L (3.5-5.1)
[2023-09-26 10:38] LABS: INFLUENZAE A&B ANTIGEN (RAPID) NEGATIVE (NEGATIVE)
[2023-09-26 10:39] LABS: RESPIRATORY SYNC. VIRUS NEGATIVE (NEGATIVE)
[2023-09-26 11:26] LABS: BAND NEUTROPHILS % (MANUAL) 5 %; LYMPHOCYTES % (MANUAL) 5 % (19-48); MONOCYTES % (MANUAL) 5 % (3.4-9.0); NEUTROPHILS % (MANUAL) 85 % (40-74)
[2023-09-26 11:27] LABS: PLATELET ESTIMATE ADEQUATE; PLATELET MORPHOLOGY COMMENT NORMAL; RBC MORPHOLOGY COMMENT NORMAL
[2023-09-26 13:10] LABS: BILIRUBIN,URINE NEGATIVE (NEGATIVE); CLARITY,URINE TURBID (CLEAR); COLOR,URINE YELLOW (YELLOW); GLUCOSE, URINE NEGATIVE (NEGATIVE); KETONES,URINE NEGATIVE (NEGATIVE); LEUKOCYTE ESTERASE ,URINE MODERATE (NEGATIVE); NITRITE,URINE NEGATIVE (NEGATIVE); PH,URINE 6 (5 - 7); PROTEIN,URINE DIPSTICK NEGATIVE (NEGATIVE); URINE UROBILINOGEN 0.2 mg/dL (0.2 - 1); WBC,URINE (MAN) >50 /HPF (0-5)
[2023-09-26 13:11] LABS: BACTERIA,URINE MANY /HPF; EPITHELIAL CELLS,URINE FEW /LPF
[2023-09-26] MEDS ORDERED: CEFDINIR300 MG PO (14:26)
[2023-09-26 14:35] VITALS: BP 134/89; PULSE 78; RESP 18; TEMP 98.1; O2SAT 100
== END 2023-09-26 14:36 | disposition home or self-care (01) ==
LOC: ER 08:39
DX: R10.30 Lower abdominal pain, unspecified (principal); N39.0 Urinary tract infection, site not specified; E27.9 Disorder of adrenal gland, unspecified; M48.56XA Collapsed vertebra, not elsewhere classified, lumbar region, initial encounter for fracture; I10 Essential (primary) hypertension; E78.5 Hyperlipidemia, unspecified; F41.9 Anxiety disorder, unspecified; Z11.52 Encounter for screening for COVID-19
CPT/HCPCS: 36415; 71045; 74176; 80053; 81001; 84484; 85025; 85610; 85730; 87040; 87071; 87086; 87186; 87205; 87400; 87420; 93005; 99283; C9113; J2405; J7030; U0002

== ENCOUNTER 2023-09-27 10:36 | Inpatient (IN) | payer MEDICAID ==
[~2023-09-27] VITALS: Ht 157.5 cm; Wt 75.7 kg
[2023-09-27] MEDS: ACETAMINOPHEN 325 MG TAB PO ONE (11:35)
[2023-09-27 11:42] LABS: BASOPHILS # (AUTO) 0.1 (0.0-0.1); BASOPHILS % 0.5 % (0.0-1.0); EOSINOPHILS % 0.2 % (0.0-6.0); HEMATOCRIT 31.4 % (34.2-44.1); HEMOGLOBIN 10.4 g/dL (12.0-16.0); LYMPHOCYTES # (AUTO) 0.5 (1.0-3.2); LYMPHOCYTES % 4.2 % (18.0-39.1); MEAN CORPUSCULAR HEMOGLOBIN 28.4 pg (28-32); MEAN CORPUSCULAR HGB CONC 33.1 g/dL (31-35); MEAN CORPUSCULAR VOLUME 85.8 fL (81-99); MONOCYTES # (AUTO) 0.5 (0.2-0.8); NEUTROPHILS # (AUTO) 11.2 (2.1-6.9); NEUTROPHILS % 90.5 % (38.7-80.0); PLATELET COUNT 143 x10e3/uL (140-360); RED BLOOD COUNT 3.66 x10e6/uL (3.6-5.1); RED CELL DISTRIBUTION WIDTH 15.3 % (11.7-14.4); WHITE BLOOD COUNT 12.41 x10e3/uL (4.8-10.8)
[2023-09-27 11:46] LABS: ALBUMIN 3.3 g/dL (3.5-5.0); ALBUMIN/GLOBULIN RATIO 0.9 (0.8-2.0); ANION GAP 18.1 mmol/L (8-16); BILIRUBIN,TOTAL 1.2 mg/dL (0.2-1.2); CALCIUM 8.6 mg/dL (8.4-10.2); CREATININE, SERUM 0.92 mg/dL (0.57-1.11); TOTAL PROTEIN 6.9 g/dL (6.5-8.1)
[2023-09-27 11:56] LABS: POTASSIUM 3.1 mmol/L (3.5-5.1)
[2023-09-27] MEDS ORDERED: ONDANSETRON HCL INJ 2MG/ML 2ML 2 MG/ML VIAL IV PRN (13:00)
[2023-09-27] MEDS ORDERED: SODIUM CHLORIDE FLUSH 10 ML SYR INJ PRN (13:00)
[2023-09-27] MEDS ORDERED: SODIUM CHLORIDE 0.9% 1000ML 1,000 ML ONE (13:09)
[2023-09-27] MEDS: SODIUM CHLORIDE 0.9% 1000ML 1,000 ML IV ONE (13:15)
[2023-09-27 14:05] VITALS: BP 102/55; PULSE 87; RESP 16; TEMP 98.4; O2SAT 100
[2023-09-27] MEDS: SODIUM CHLORIDE 0.9% 1000ML 1,000 ML IV SCH (15:04)
[2023-09-27 16:39] VITALS: BP 102/55; PULSE 87; RESP 16; TEMP 98.4; O2SAT 100
[2023-09-27 17:25] VITALS: BP 102/55; PULSE 87; RESP 16; TEMP 98.4; O2SAT 100
[2023-09-27] MEDS ORDERED: DOCUSATE SODIUM 100 MG CAP PO PRN (17:45)
[2023-09-27] MEDS ORDERED: MELATONIN 3 MG TAB PO PRN (17:45)
[2023-09-27] MEDS ORDERED: MECLIZINE HCL 12.5 MG TAB PO PRN (17:45)
[2023-09-27] MEDS ORDERED: SIMETHICONE 80 MG CHEW PO PRN (17:45)
[2023-09-27] MEDS ORDERED: ALBUTEROL/IPRATROPIUM 3 ML NEB NEB PRN (17:45)
[2023-09-27] MEDS ORDERED: DEXTROSE 50% SYRINGE 50 ML IV PRN (18:00)
[2023-09-27 19:23] LABS: CHOL/HDL RATIO 6.5 (3.0-3.6)
[2023-09-27] MEDS: ACETAMINOPHEN 325 MG TAB PO PRN (19:40)
[2023-09-27 20:00] VITALS: BP 162/82; PULSE 93; RESP 18; TEMP 99.2; O2SAT 98
[2023-09-27] MEDS: INSULIN REGULAR, HUMAN 100 UNIT/1 ML SQ SCH (20:49)
[2023-09-27] MEDS: SIMVASTATIN 20 MG TAB PO SCH (20:50)
[2023-09-28] VITALS (8 sets, daily range): BP systolic 85–109; BP diastolic 55–77; PULSE 62–134; RESP 16–20; TEMP 97.6–98.4; O2SAT 95–100
[2023-09-28 05:58] LABS: BASOPHILS % 0.4 % (0.0-1.0); EOSINOPHILS % 0.1 % (0.0-6.0); HEMATOCRIT 25.5 % (34.2-44.1); HEMOGLOBIN 8.5 g/dL (12.0-16.0); LYMPHOCYTES # (AUTO) 0.4 (1.0-3.2); LYMPHOCYTES % 5.7 % (18.0-39.1); MEAN CORPUSCULAR HEMOGLOBIN 28.2 pg (28-32); MEAN CORPUSCULAR HGB CONC 33.3 g/dL (31-35); MEAN CORPUSCULAR VOLUME 84.7 fL (81-99); MONOCYTES # (AUTO) 0.4 (0.2-0.8); MONOCYTES % 5.2 % (4.4-11.3); NEUTROPHILS # (AUTO) 6.4 (2.1-6.9); NEUTROPHILS % 86.6 % (38.7-80.0); PLATELET COUNT 87 x10e3/uL (140-360); RED BLOOD COUNT 3.01 x10e6/uL (3.6-5.1); RED CELL DISTRIBUTION WIDTH 15.3 % (11.7-14.4); WHITE BLOOD COUNT 7.35 x10e3/uL (4.8-10.8)
[2023-09-28 06:09] LABS: ALBUMIN 2.5 g/dL (3.5-5.0); ALBUMIN/GLOBULIN RATIO 0.8 (0.8-2.0); ANION GAP 13.9 mmol/L (8-16); BILIRUBIN,TOTAL 1.2 mg/dL (0.2-1.2); CALCIUM 7.8 mg/dL (8.4-10.2); CREATININE, SERUM 0.93 mg/dL (0.57-1.11); TOTAL PROTEIN 5.6 g/dL (6.5-8.1)
[2023-09-28 06:34] LABS: POTASSIUM 2.9 mmol/L (3.5-5.1)
[2023-09-28] MEDS: POTASSIUM CHLORIDE 20 MEQ TAB CR PO ONE (08:14)
[2023-09-28] MEDS: METFORMIN HCL 500 MG TAB PO SCH (08:14)
[2023-09-28] MEDS: AMLODIPINE BESYLATE 10 MG TAB PO SCH (08:21)
[2023-09-28 10:01] LABS: ANION GAP 16.4 mmol/L (8-16); CALCIUM 8.2 mg/dL (8.4-10.2); CREATININE, SERUM 0.88 mg/dL (0.57-1.11)
[2023-09-28 10:12] LABS: POTASSIUM 3.4 mmol/L (3.5-5.1)
[2023-09-28 11:00] LABS: BAND NEUTROPHILS % (MANUAL) 33 %; HYPOCHROMASIA MODERATE; LYMPHOCYTES % (MANUAL) 4 % (19-48); METAMYELOCYTES % (MANUAL) 1 % (0-0); MONOCYTES % (MANUAL) 4 % (3.4-9.0); NEUTROPHILS % (MANUAL) 58 % (40-74); PLATELET ESTIMATE MODERATELY DECREASED; PLATELET MORPHOLOGY COMMENT NORMAL
[2023-09-29] VITALS (7 sets, daily range): BP systolic 102–128; BP diastolic 56–88; PULSE 75–139; RESP 17–20; TEMP 98.1–99.8; O2SAT 95–97
[2023-09-29 06:37] LABS: ANION GAP 15.3 mmol/L (8-16); CREATININE, SERUM 0.76 mg/dL (0.57-1.11)
[2023-09-29 06:39] LABS: POTASSIUM 3.3 mmol/L (3.5-5.1)
[2023-09-29] MEDS ORDERED: ONDANSETRON HCL 4 MG ORAL DISINTEGRATING TAB PO PRN (13:30)
[2023-09-30] VITALS (9 sets, daily range): BP systolic 110–135; BP diastolic 76–85; PULSE 62–134; RESP 17–20; TEMP 97.4–99.4; O2SAT 93–98
[2023-09-30] MEDS: AMIODARONE HCL 200 MG TAB PO SCH (01:06)
[2023-09-30 06:09] LABS: HEMATOCRIT 27.7 % (34.2-44.1); HEMOGLOBIN 8.7 g/dL (12.0-16.0); MEAN CORPUSCULAR HEMOGLOBIN 27.5 pg (28-32); MEAN CORPUSCULAR HGB CONC 31.4 g/dL (31-35); MEAN CORPUSCULAR VOLUME 87.7 fL (81-99); PLATELET COUNT 126 x10e3/uL (140-360); RED BLOOD COUNT 3.16 x10e6/uL (3.6-5.1); WHITE BLOOD COUNT 7.09 x10e3/uL (4.8-10.8)
[2023-09-30 08:46] LABS: LYMPHOCYTES % (MANUAL) 19 % (19-48); MONOCYTES % (MANUAL) 1 % (3.4-9.0); NEUTROPHILS % (MANUAL) 80 % (40-74); PLATELET ESTIMATE SLIGHTLY DECREASED
[2023-09-30 08:47] LABS: PLATELET MORPHOLOGY COMMENT NORMAL; RBC MORPHOLOGY COMMENT NORMAL
[2023-09-30] MEDS: APIXABAN 5 MG TABLET PO SCH (09:17)
[2023-09-30] MEDS: METOPROLOL TARTRATE INJ 1 MG/ML VIAL IV PRN (12:16)
[2023-10-01] VITALS (8 sets, daily range): BP systolic 131–153; BP diastolic 65–79; PULSE 78–84; RESP 16–18; TEMP 97.7–98.9; O2SAT 94–100
[2023-10-02 03:37] VITALS: BP 122/75; PULSE 86; RESP 18; TEMP 98.6; O2SAT 94
[2023-10-02 08:00] VITALS: BP 122/75; PULSE 86; RESP 18; TEMP 98.6; O2SAT 94
[2023-10-02 08:51] VITALS: BP 158/75; PULSE 78; RESP 18; TEMP 98.6; O2SAT 96
[2023-10-02] MEDS ORDERED: ELIQUIS5 MG PO (10:22)
[2023-10-02] MEDS ORDERED: LOPRESSOR25 MG PO (10:22)
[2023-10-02] MEDS ORDERED: AMIODARONE HCL200 MG PO (10:22)
[2023-10-02 12:22] VITALS: BP 152/83; PULSE 85; RESP 18; TEMP 98; O2SAT 96
[2023-10-02 16:26] VITALS: BP 165/82; PULSE 96; RESP 19; TEMP 98.4; O2SAT 97
[2023-10-02] MEDS ORDERED: INSULIN LISPRO 100 UNIT/1 ML 3ML VIAL SQ SCH (16:30)
[2023-10-07 13:38] LABS: VANILLYLMANDELIC ACID URINE 3.1 mg/L (Undefined); VANILLYLMANDELIC ACID24h 1.4 mg/24 hr (0.0-7.5)
== END 2023-10-02 15:22 | disposition home or self-care (01) | DRG 690 ==
LOC: ER 10:42 → ERHOLD 12:59 → MED/SURG2 14:20 → OBSVTOIN 18:02
PROVIDERS: ADMIT Internal Medicine; ATTEND Internal Medicine
DX: N39.0 Urinary tract infection, site not specified (principal); R78.81 Bacteremia; Z16.12 Extended spectrum beta lactamase (ESBL) resistance; E87.1 Hypo-osmolality and hyponatremia; M80.08XA Age-related osteoporosis with current pathological fracture, vertebra(e), initial encounter for fracture; B96.20 Unspecified Escherichia coli [E. coli] as the cause of diseases classified elsewhere; E27.9 Disorder of adrenal gland, unspecified; E87.6 Hypokalemia; E11.9 Type 2 diabetes mellitus without complications; I48.91 Unspecified atrial fibrillation; I10 Essential (primary) hypertension; E78.5 Hyperlipidemia, unspecified; F32.A Depression, unspecified; E66.9 Obesity, unspecified; Z68.30 Body mass index [BMI] 30.0-30.9, adult; F41.9 Anxiety disorder, unspecified; Z11.52 Encounter for screening for COVID-19; Z79.82 Long term (current) use of aspirin; Z79.84 Long term (current) use of oral hypoglycemic drugs; Z79.891 Long term (current) use of opiate analgesic; Z88.5 Allergy status to narcotic agent; Z83.3 Family history of diabetes mellitus; Z82.49 Family history of ischemic heart disease and other diseases of the circulatory system
CPT/HCPCS: 36415; 80048; 80053; 80061; 82530; 82948; 83036; 83605; 83835; 84585; 85007; 85025; 85027; 93005; 93306; 99284; J2543; J7030; U0002

== ENCOUNTER 2024-01-01 12:31 | Emergency (ER) | payer MEDICARE, MEDICAID ==
[~2024-01-01] VITALS: Ht 154.9 cm; Wt 72.6 kg
[~2024-01-01 12:31] MED LIST changes: +AMIODARONE HCL200 MG PO; +ELIQUIS5 MG PO; +LOPRESSOR25 MG PO
[2024-01-01 12:55] VITALS: PULSE 94; RESP 16; TEMP 98.2; O2SAT 100
[2024-01-01] MEDS ORDERED: DEXAMETHASONE6 MG PO (13:22)
[2024-01-01] MEDS: DEXAMETHASONE 4 MG TAB PO ONE (14:14)
== END 2024-01-01 14:15 | disposition home or self-care (01) ==
LOC: ER 12:45
DX: M25.532 Pain in left wrist (principal); M25.531 Pain in right wrist; M25.562 Pain in left knee; M25.561 Pain in right knee; I10 Essential (primary) hypertension; E11.9 Type 2 diabetes mellitus without complications; E78.5 Hyperlipidemia, unspecified; F41.9 Anxiety disorder, unspecified; Z96.651 Presence of right artificial knee joint
CPT/HCPCS: 73562; 99283; J8540